=== PATIENT | male | born 1965 | race African-American/Black ===

== ENCOUNTER 2017-08-12 08:21 | Inpatient (IN) | payer OTHER ==
--- NOTE | 2017-08-02 16:37 | HP ---
HISTORY AND PHYSICAL: DATE OF ADMISSION/SURGERY: 08/12/17 DATE OF OFFICE VISIT: 07/31/17 SURGEON: Charity Dugan MD * (DICTATED BY CARLOS NGUYEN) PROCEDURE: Right total hip arthroplasty. CHIEF COMPLAINT: Right hip pain. HISTORY OF PRESENT ILLNESS: Mr. Galvan is a 52-year-old gentleman with complaints of right hip pain secondary to end-stage osteoarthritis. He failed conservative management and has elected to proceed with a right total hip arthroplasty, which is scheduled for 08/12/17. PAST MEDICAL HISTORY: Denies. PAST SURGICAL HISTORY: Left knee arthroscopy x2, left total knee arthroplasty, right shoulder scope, right knee arthroscopy, and tonsillectomy. CURRENT MEDICATIONS: Percocet. ALLERGIES: None. FAMILY HISTORY: Hypertension, heart disease, asthma. SOCIAL HISTORY: He is a 52-year-old gentleman. Lives alone. He does not smoke or use drugs. He uses occasional alcohol. REVIEW OF SYSTEMS: A complete 14-point review of systems was reviewed with the patient, was all negative or noncontributory. PHYSICAL EXAMINATION GENERAL: He is well developed, well nourished, in no acute distress. VITAL SIGNS: He stands 5 feet 3 inches tall and weighs 250 pounds. His blood pressure is 130/89. His heart rate is 101. HEENT: Normocephalic, atraumatic. NECK: Supple. No palpable lymph nodes. PULMONARY: Lungs are clear to auscultation bilaterally. CARDIO: Regular rate and rhythm. Strong S1, S2. ABDOMEN: Soft, nontender, nondistended. NEUROLOGICAL: Alert and oriented x3. Cranial nerves II through XII are intact. MUSCULOSKELETAL: Right lower extremity, skin is intact. There are no open wounds or abrasions. He has decreased internal and external rotation of the right hip. He walks with a slightly antalgic-type gait. 2+ dorsalis pedis pulses and intact sensation. ASSESSMENT AND PLAN: Mr. Galvan is a 52-year-old gentleman with right hip pain secondary to advanced osteoarthritis. He has failed conservative management and elected to proceed with a right total hip arthroplasty, which is scheduled for 08/12/[address] Dugan discussed the risks and benefits of the surgery and all of his questions were answered. He will follow up with Dr. Dugan 2 weeks after the surgery. Percocet, Colace, and aspirin were sent to his pharmacy for postoperative pain control and DVT prophylaxis. CARLOS NGUYEN [id number]/[facility] #: [id number] MTDDerrek
[~2017-08-12 08:21] MED LIST: Buffered Lidocaine 0.9% SYRIN* 5 ML/SYR SYRINGE INTRADERM ONE; Famotidine IV* 10 MG/ML 2 ML (20 mg) IV ONE; Metoclopramide TAB* 10 MG PO ONE
[2017-08-12] MEDS ORDERED: Metoclopramide TAB* 10 MG ONE (08:31)
[2017-08-12] MEDS ORDERED: ceFAZolin 2 GM PREMIX (*) 50 ML IVPB ONE (08:31)
[2017-08-12] MEDS ORDERED: Famotidine IV* 10 MG/ML 2 ML (20 mg) ONE (08:31)
[2017-08-12] MEDS ORDERED: Propofol* 10 MG/ML 20 ML BTL IV PUSH ONE (09:02)
[2017-08-12] MEDS ORDERED: KETAMINE HCL* 50 MG/ML 10 ML VIAL ONE (09:02)
[2017-08-12] MEDS ORDERED: Dexamethasone IV* 4 MG/ML 1 ML (4 MG) ONE (09:02)
[2017-08-12] MEDS ORDERED: Ketorolac INJ* 30 MG/ML 1 ML VIAL ONE (09:02)
[2017-08-12] MEDS ORDERED: Midazolam* 1 MG/ML 5 ML VIAL (5 MG) ONE (09:02)
[2017-08-12] MEDS ORDERED: Lidocaine 2% PF * 5 ML VIAL ONE (09:02)
[2017-08-12] MEDS ORDERED: fentaNYL* 50 MCG/ML 2 ML VIAL (100 MCG VIAL) ONE ×2 (09:02→13:22)
[2017-08-12] MEDS ORDERED: Ondansetron INJ* 2 MG/ML VIAL ONE (09:02)
[2017-08-12] MEDS ORDERED: Bupivacaine 0.5% SDV PF* 30 ML VIAL ONE ×2 (09:02→12:28)
[2017-08-12] MEDS ORDERED: Morphine PF AMP (0.5MG/ML)* 5 MG/10 ML AMP ONE (09:03)
[2017-08-12] MEDS ORDERED: fentaNYL* 50 MCG/ML 5 ML VIAL (250 MCG VIAL) ONE (10:34)
[2017-08-12] MEDS ORDERED: Cisatracurium* 2 MG/ML MDV 5 ML ONE (10:35)
[2017-08-12] MEDS ORDERED: DiMENhydriNATE IV* 50 MG/ML VIAL IV PUSH PRN (11:19)
[2017-08-12] MEDS ORDERED: Ondansetron INJ* 2 MG/ML VIAL IV PRN (11:19)
[2017-08-12] MEDS ORDERED: HYDROmorphone INJ* 1 MG/ML CARPUJECT SYRINGE ONE ×2 (12:39→13:47)
[2017-08-12] MEDS ORDERED: Labetalol IV* 5 MG/ML 20 ML VIAL ONE (12:47)
[2017-08-12] MEDS ORDERED: Ondansetron TAB* 4 MG PO PRN (13:07)
[2017-08-12] MEDS ORDERED: Bisacodyl SUPP* 10 MG SUPP PR PRN (13:07)
[2017-08-12] MEDS ORDERED: Morphine INJ* 2 MG/ML 1 ML CARPUJECT IV PRN (13:07)
[2017-08-12] MEDS ORDERED: oxyCODONE/Acetamin 5/325 MG* TAB PO PRN (13:07)
[2017-08-12] MEDS ORDERED: oxyCODONE TAB* 5 MG TAB PO PRN (13:07)
[2017-08-12] MEDS ORDERED: Polyethylene Glycol 3350* 17 GM PACKET PO PRN (13:07)
[2017-08-12] MEDS ORDERED: Acetaminophen TAB* 325 MG PO PRN (13:07)
[2017-08-12] MEDS ORDERED: diPHENhydraMINE IV* 50 MG/ML 1 ml VIAL (BENADRYL) IV PRN (13:07)
--- NOTE | 2017-08-12 13:17 | RAD ---
INDICATION: Right total hip replacement surgery. COMPARISON: Comparison is made with a prior x-ray study of the right hip from June 28, 2017. TECHNIQUE: A single AP view of the pelvis was obtained portably in the operating room. FINDINGS: The patient is undergoing a total right hip replacement surgery. The acetabular prostheses is in place. There is a femoral prostheses template in place. There is a surgical soft tissue defect present laterally. IMPRESSION: INTRAOPERATIVE CONTROL FILMS. CPT II Codes: 6045F
[2017-08-12] MEDS: fentaNYL* 50 MCG/ML 2 ML VIAL (100 MCG VIAL) IV PRN ×2 (13:24→13:44)
[2017-08-12] MEDS: HYDROmorphone INJ* 1 MG/ML CARPUJECT SYRINGE IV PRN ×2 (13:48→14:32)
--- NOTE | 2017-08-12 14:08 | RAD ---
Indication: Right total hip replacement. 2 views of the right hip and an AP view the pelvis demonstrates bipolar right-sided hip arthroplasty in satisfactory position. Pelvic ring is intact. Left hip joint is unremarkable. IMPRESSION: Right hip replacement in satisfactory position.
[2017-08-12] MEDS ORDERED: oxyCODONE/Acetamin 5/325 MG* TAB ONE (14:31)
[2017-08-12] MEDS: oxyCODONE/Acetamin 5/325 MG* TAB PO PRN ×2 (14:32→21:58)
[2017-08-12] MEDS ORDERED: Tobramycin/Dexameth OPTH.SUSP* 2.5 M L BTL RIGHT EYE SCH (15:30)
[2017-08-12] MEDS: Tobramycin 0.3% OPHTH.OINT* 3.5 GM TUBE (OPTH OINTMENT) RIGHT EYE SCH ×3 (15:53→21:59)
[2017-08-12] MEDS ORDERED: Warfarin TAB(*) 6 MG PO ONE (17:00)
[2017-08-12] MEDS: ceFAZolin 1 GM VIAL(*) 1 GM in NS 0.9% 50 ML* 50 ML IVPB SCH (19:53)
[2017-08-12] MEDS: Docusate CAP* 100 MG PO SCH (19:56)
[2017-08-13] MEDS: ceFAZolin 1 GM VIAL(*) 1 GM in NS 0.9% 50 ML* 50 ML IVPB SCH ×2 (03:34→12:28)
[2017-08-13 06:34] LABS: Hematocrit 35 % (42-52)
[2017-08-13 06:53] LABS: BUN/Creatinine Ratio 14.2 (8-20); Calcium 8.2 mg/dL (8.6-10.3); EGFR African American 94.4 (>60); EGFR Non-African American 73.4 (>60); Potassium 3.9 mmol/L (3.5-5.0)
[2017-08-13] MEDS: oxyCODONE/Acetamin 5/325 MG* TAB PO PRN ×2 (07:57→12:27)
[2017-08-13] MEDS: Docusate CAP* 100 MG PO SCH ×2 (07:58→20:49)
[2017-08-13] MEDS: Tobramycin 0.3% OPHTH.OINT* 3.5 GM TUBE (OPTH OINTMENT) RIGHT EYE SCH ×4 (07:58→20:49)
--- NOTE | 2017-08-13 08:06 | PN ---
Progress Note - Progress Note Date of Service: 08/13/17 SOAP: Subjective: patient resting comfortably with no complaints, pain well controlled Objective: Vital Signs Temp Pulse Resp BP Pulse Ox 99.1 F 84 16 124/73 100 08/13/17 07:46 08/13/17 07:46 08/13/17 07:57 08/13/17 07:46 08/13/17 07:46 Laboratory Last Values Hgb 12.0 g/dl (14.0-18.0) L 08/13/17 06:16 Hct 35 % (42-52) L 08/13/17 06:16 INR (Anticoag Therapy) 1.02 (0.89-1.11) 08/13/17 06:17 Sodium 137 mmol/L (133-145) 08/13/17 06:16 Potassium 3.9 mmol/L (3.5-5.0) 08/13/17 06:16 Chloride 106 mmol/L (101-111) 08/13/17 06:16 Carbon Dioxide 25 mmol/L (22-32) 08/13/17 06:16 Anion Gap 6 mmol/L (2-11) 08/13/17 06:16 BUN 15 mg/dL (6-24) 08/13/17 06:16 Creatinine 1.06 mg/dL (0.67-1.17) 08/13/17 06:16 Est GFR ( Amer) 94.4 (>60) 08/13/17 06:16 Est GFR (Non-Af Amer) 73.4 (>60) 08/13/17 06:16 BUN/Creatinine Ratio 14.2 (8-20) 08/13/17 06:16 Glucose 117 mg/dL (70-100) H 08/13/17 06:16 Calcium 8.2 mg/dL (8.6-10.3) L 08/13/17 06:16 incision:c/d PE: NVI Assessment: s/p right MAZIN Plan: 1) PT/OT- WBAT 2) Lovenox for DVT prophylaxis; will go home on ASA 325 BID 3) Abx for 24 hours post-op
[2017-08-13] MEDS: Enoxaparin(*) 30 MG/0.3 ML SYR SUBCUT SCH (12:27)
--- NOTE | 2017-08-13 15:13 | OP ---
OPERATIVE REPORT: DATE OF OPERATION: 08/12/17 - Inpatient, [facility] room 342-02. DATE OF : 65 SURGEON: Charity Dugan MD. CREMATOR: CARLOS Leyva. Ms. Vasquez did help throughout the procedure with preparation of the leg, wound retraction, manipulation of the hip, and wound closure. ANESTHESIOLOGIST: Dr. Zavala. ANESTHESIA: General. PRE-OP DIAGNOSIS: Severe endstage degenerative osteoarthritis of the right hip joint. POST-OP DIAGNOSIS: Severe end-stage degenerative osteoarthritis of the right hip joint. OPERATIVE PROCEDURE: Right total hip arthroplasty. HARDWARE USED: This is an uncemented [place] total hip hardware. For the cup, a Tritanium cluster hole shell 54E with a single 25-mm cancellous bone screw. A polyethylene insert was Trident X3 0-degree 36E. For the stem, an Accolate TMZF size 3.5 with 127-degree neck. For the head, a Biolox delta ceramic C40 femoral head 36 +0. ESTIMATED BLOOD LOSS: 300 mL. COMPLICATIONS: None. SPECIMENS: Femoral head and acetabular reaming sent to pathology. BRIEF HISTORY/INDICATION: Mr. Galvan is a 52-year-old gentleman with approximately 1 year of severe right hip pain. Radiographs showed severe endstage arthritis with [id number]-[id number] contact. He failed conservative treatment with antiinflammatory, physical therapy, pain medication, and intraarticular injection. Due to continued pain and decreased quality of life, he elected to undergo right total hip arthroplasty. Informed consent was obtained from the patient. He understood the risks of the procedure, included but were not limited to bleeding, infection, damage to nearby structures, continued pain, need for further surgery, intraoperative fracture, nerve palsy, hardware failure or loosening, dislocation, leg length discrepancy, stroke, heart attack , blood clot, and . He wished to proceed. INTRAOPERATIVE FINDINGS: Intraoperatively, the patient was noted to have severe endstage arthritis significant osteophyte formation. He had complete loss of cartilage along the femoral head and acetabulum. DESCRIPTION OF PROCEDURE: Mr. Galvan was identified in the preanesthesia unit. Her right lower extremity was marked as the correct operative side. Informed consent was signed and placed in the chart. The patient was taken to the operating room and placed under general anesthesia. A Eubanks catheter was placed. He was placed in the left lateral decubitus position on the PEG board. All bony prominences were very well padded. Right lower extremity was prepped and draped in the usual sterile fashion. Preop time-out was made to correctly identity the patient's side and site. Appropriate perioperative antibiotics were given within 1 hour of incision. A 14-cm posterior hip incision was made with a 10 blade and carried down to the lateral fascial layer. Lateral fascial layer was then incised in line with the skin incision. A Charnley retractor was placed. The piriformis and conjoint tendons were identified. There were elevated off the posterolateral femur using electrocautery. These were tagged with #5 Ethibonds. Next, electrocautery was used to make a standard posterolateral capsular flap and this was also tagged with #5 Ethibonds. The hip was carefully dislocated. The femoral head measured 55 mm. Oscillating saw was used to make the appropriate femoral neck cut. The femur was carefully retracted anteriorly. After appropriate placement of retractors, the acetabulum was easily visualized. Long-handled knife was used to remove any remaining labrum from the acetabular rim. The acetabulum was sequentially reamed to a size 53. A good bleeding subchondral bone bed was obtained. A 53 trial had excellent fit as well as appropriate anteversion and abduction angle. Final implant chosen was a Tritanium hemispherical cluster hole shell 54E. This was impacted into the acetabulum without difficulty. The acetabular cup was stable with appropriate anteversion and abduction angle. A single 25-mm screw was placed in the superior posterior quadrant for added stability. Trident X3 0 degree polyethylene liner was chosen 36E. This was impacted into the acetabulum without difficulty. Stability of the liner was checked and rechecked and noted to be stable. Attention was turned next to preparation of the femur. Canal finger and box cut osteotome were used to enter the proximal femoral canal. The femoral canal was sequentially broached up to a size 3.5. A 3.5 broach had good fit as well as appropriate anteversion. A 127-degree neck trial was placed as well as a 36 +0 femoral head trial was chosen. Lesser troch to the center of the femoral head measured 54 mm. The hip was reduced and taken through a range of motion. The hip was stable in all positions. There was good soft tissue tension and appropriate leg lengths. All trials were carefully removed. Final implant chosen was an Accolade TMZF size 3.5 with a 127-degree neck. This was impacted into the femoral canal without difficulty. A 36 +0 Biolox delta ceramic C40 femoral head was chosen. This was impacted on to the femoral neck. Lesser troch to center of the femoral head measured 54 mm. The hip was reduced and taken through a range of motion. The hip was stable in all positions. There was good soft tissue tension and appropriate leg lengths. The hip was copiously irrigated with sterile saline. Previously tagged tendons and capsule were reapproximated to the posterolateral femur through 2 trochanteric drill holes. Lateral fascia layer was closed using interrupted #1 Vicryl. The rest of the incision was closed in a layered fashion using 0, 2-0 Vicryls. Skin was closed using running 3-0 Monocryl and Dermabond. Sterile Adaptic, 4x4s, and paper tape were used to cover the incision. The patient's anesthesia was carefully reversed without difficulty. He was taken to the PACU in stable condition. Intended weightbearing will be weightbearing as tolerated. Intended DVT prophylaxis will be Coumadin with a Lovenox bridge. [id number]/[facility] #: [id number] JACQUELYN
[2017-08-14] MEDS: Magnesium Hydroxide LIQ* 30 ML UDC PO PRN ×2 (03:28→08:44)
[2017-08-14 05:53] LABS: Hematocrit 34 % (42-52)
[2017-08-14] MEDS: Docusate CAP* 100 MG PO SCH (08:44)
[2017-08-14] MEDS: Tobramycin 0.3% OPHTH.OINT* 3.5 GM TUBE (OPTH OINTMENT) RIGHT EYE SCH ×2 (08:45→12:47)
--- NOTE | 2017-08-14 10:56 | PN ---
Progress Note - Progress Note Date of Service: 08/14/17 SOAP: Subjective: []Patient seen at bedside, ready to work with PT. Had a BM this am and is ready to go home this afternoon. Denies SOB, CP or dizziness. Objective: [] Vital Signs Temp 98.0 F 08/14/17 07:20 Pulse 99 08/14/17 07:20 Resp 18 08/14/17 08:00 BP 115/54 08/14/17 07:20 Pulse Ox 98 08/14/17 07:20 Intake & Output 08/13/17 08/14/17 08/14/17 18:59 06:59 18:59 Intake Total 760 1100 350 Output Total 1175 300 Balance 760 -75 50 Intake: Oral 760 1100 350 Output: Urine 1175 300 Other: Estimated Void Medium # Bowel Movements 0 Laboratory Results - last 24 hr 08/14/17 08/14/17 05:36 05:36 Hgb 12.0 L Hct 34 L INR (Anticoag Therapy) 1.05 Right hip incision benign, dressing changed by Dr. Dugan this am calf NT and soft +DF/PF right ankle sensation intact distally Assessment: []s/p Right total hip arthroplasty POD #2 Plan: []PT this am ASA 325 mg BID Home this afternoon Follow up as scheduled with Dr. Dugan
[2017-08-14 11:48] VITALS: BP 130/78
[2017-08-14] MEDS: Enoxaparin(*) 30 MG/0.3 ML SYR SUBCUT SCH (12:46)
--- NOTE | 2017-08-15 02:37 | DS ---
DISCHARGE SUMMARY: DATE OF ADMISSION: 08/12/17 DATE OF DISCHARGE: 08/14/17 ATTENDING PHYSICIAN: Dr. Charity Dugan. ADMISSION DIAGNOSIS: Severe end-stage degenerative osteoarthritis of the right hip. DISCHARGE DIAGNOSIS: Severe end-stage degenerative osteoarthritis of the right hip. SURGERY PERFORMED: Right total hip arthroplasty. HOSPITAL COURSE: The patient is a 52-year-old male with roughly 1 year of severe right hip pain. H is x-rays revealed severe end-stage osteoarthritis with bone on bone contact. The patient failed co nservative management with antiinflammatories, physical therapy, pain medications, and intraarticula r cortisone injections. Due to his continued pain and disability, he elected to proceed with right total hip arthroplasty. He was taken to the operating room under the care of Dr. Charity Dugan on e date of 08/12/17 for the aforementioned procedure. He tolerated the procedure well and left the o perating room in stable condition. Postoperatively, he did well with his physical therapy and occupational therapy exercises. He had n o postoperative complications and it was felt he was medically and orthopedically stable for dischar ge to home on the date of 08/14/17. CONDITION ON DISCHARGE: The patient is afebrile with a temperature of 97.8, his pulse is 108, respi ratory rate 18, O2 sats 96% on room air, and blood pressure 130/78. His hip incision is healing wit hout evidence of infection. He has full dorsiflexion and plantar flexion of his right ankle. His c mcc is nontender and soft. His circulation and sensation are intact distally. PLAN: The patient will be discharged to home. He may bear weight as tolerated on the right lower e xtremity. He was not therapeutic on his Coumadin; therefore, we will discontinue the Coumadin and h e will be transitioned to aspirin 325 mg p.o. b.i.d. The patient is in understanding of this change in his postoperative anticoagulation plan. He will continue with his PT exercise program as an out patient and will follow up as scheduled with Dr. Dugan in the office. If there is any change in his condition orthopedically or medically, the office will be contacted prior to his scheduled appointm ent. CARLOS SARGENT [id number]/[facility] [place] #: [id number]
== END 2017-08-14 13:15 | disposition home health service (06) | DRG 301 ==
LOC: AA 08:21 → SSU 16:17
PROVIDERS: ADMIT Orthopaedic Surgery Adult Reconstructive Orthopaedic Surgery; ATTEND Orthopaedic Surgery Adult Reconstructive Orthopaedic Surgery
PROC: 0SR904A Replacement of Right Hip Joint with Ceramic on Polyethylene Synthetic Substitute, Uncemented, Open Approach (ICD-10-PCS; principal; 2017-08-12 10:00)
DX: M16.11 Unilateral primary osteoarthritis, right hip (principal); M25.751 Osteophyte, right hip; Z79.82 Long term (current) use of aspirin; Z96.651 Presence of right artificial knee joint; Z82.49 Family history of ischemic heart disease and other diseases of the circulatory system; Z82.5 Family history of asthma and other chronic lower respiratory diseases
CPT/HCPCS: 36415; 80048; 85014; 85018; 85610; A9270-GY; C1713; C1776; J0690; J1100; J1170; J1650; J1885; J2250; J2405; J2704; J3010

== ENCOUNTER 2018-01-29 14:07 | Emergency (ER) | payer OTHER ==
[2018-01-29 16:22] LABS: Hematocrit 45 % (42-52); Hemoglobin 15.3 g/dl (14.0-18.0); Mean Corpuscular HGB Conc 34 g/dl (31-36); Mean Corpuscular Hemoglobin 28 pg (27-31); Mean Corpuscular Volume 83 fL (80-94); Mean Platelet Volume 9 um3 (7.4-10.4); Platelet Count 213 10^3/ul (150-450); Red Blood Count 5.44 10^6/ul (4.0-5.4); Red Cell Distribution Width 15 % (10.5-15)
--- NOTE | 2018-01-29 16:28 | RAD ---
INDICATION: Hemoptysis COMPARISON: Chest x-ray September 26, 2017 TECHNIQUE: An AP portable view obtained at 1611 hours is submitted. FINDINGS: Bones/Soft Tissues: There are no acute bony findings. Cardiomediastinal: The cardiomediastinal silhouette is normal. Lungs: There are no infiltrates. Pleura: There are no pleural effusions. Other: None IMPRESSION: NO ACTIVE DISEASE.
[2018-01-29 16:30] LABS: INR 0.93 (0.77-1.02)
[2018-01-29 16:42] LABS: EGFR Non-African American 73.4 (>60)
[2018-01-29 16:58] LABS: ABS Basophils 0 10^3/ul (0-0.2); ABS Eosinophils 0 10^3/ul (0-0.6); ABS Lymphocytes 0.6 10^3/ul (1.0-4.8); ABS Monocytes 0.6 10^3/ul (0-0.8); ABS Neutrophils 5.7 10^3/ul (1.5-7.7); ABS Nucleated RBC 0 10^3/ul; Eosinophil % 0.6 % (0-6); Lymphocyte % 9.2 % (25-47); Nucleated Red Blood Cells % 0.1
[2018-01-29 17:10] VITALS: BP 119/89
--- NOTE | 2018-01-29 23:13 | ED ---
Nova Barron Gabriel, scribed for Chandrakant Glover MD on 01/29/18 at 1558 . Complex/Multi-Sys Presentation - HPI Summary HPI Summary: This patient is a 52 year old M [facility] accompanied by his partner with a chief complaint of bloody phlegm that began 6 weeks ago. Pt states this occurs when he wakes up; he had similar symptoms for 6 months that resolved. The patient rates the pain 7/10 in severity.Patient reports diarrhea and epigastric ABD pain. Patient denies blood in his stool, sinus pressure, cough, and chest congestion.Pt is getting an endoscopy and colonoscopy in a week. Hx GERD. - History Of Current Complaint Chief Complaint: EDGeneral Time Seen by Provider: 01/29/18 15:48 Hx Obtained From: Patient Onset/Duration: Lasting Weeks - 6, Still Present Timing: Constant Severity Currently: Mild Severity Initially: Mild Associated Signs And Symptoms: Positive: Other - diarrhea, bloody phlem, and epigastric ABD pain - Allergies/Home Medications Allergies/Adverse Reactions: Allergies Allergy/AdvReac Type Severity Reaction Status Date / Time No Known Allergies Allergy Verified 01/29/18 14:11 PMH/Surg Hx/FS Hx/Imm Hx Endocrine/Hematology History: Denies: Hx Anticoagulant Therapy, Hx Blood Disorders, Hx Diabetes Cardiovascular History: Denies: Hx Congestive Heart Failure, Hx Hypertension, Hx Pacemaker/ICD Respiratory History: Denies: Hx Asthma, Hx Chronic Obstructive Pulmonary Disease (COPD) GI History: Reports: Hx Gastroesophageal Reflux Disease History: Denies: Hx Renal Disease Musculoskeletal History: Reports: Hx Arthritis - KNEES, HIPS, Other Musculoskeletal History - HX OF INJURIES TO SHOULDERS, CHRONIC PAIN IN KNEES, HIPS Sensory History: Reports: Hx Contacts or Glasses - GLASSES Denies: Hx Hearing Aid Opthamlomology History: Reports: Hx Contacts or Glasses - GLASSES Psychiatric History: Denies: Hx Panic Disorder, Other Psychiatric Issues/Disorders - Cancer History Hx Chemotherapy: No - Surgical History Surgery Procedure, Year, and Place: RIGHT SHOULDER REPAIR- 12 YRS AGO- [facility]. [facility] LEFT KNEE ARTHROSCOPY- [facility]. ORIF LEFT KNEE- [facility]. LEFT KNEE HARDWARE REMOVAL- [facility]. LEFT TOTAL KNEE REPLACEMENT- [facility] Hx Anesthesia Reactions: No Infectious Disease History: No Infectious Disease History: Denies: Hx Clostridium Difficile, Hx Hepatitis, Hx Human Immunodeficiency Virus (HIV), Hx of Known/Suspected MRSA, Hx Shingles, Hx Tuberculosis, History Other Infectious Disease, Traveled Outside the [place] in Last 30 Days - Family History Known Family History: Positive: Hypertension - Social History Alcohol Use: Occasionally Hx Substance Use: No Substance Use Type: Reports: None Hx Tobacco Use: No Smoking Status (MU): Never Smoked Tobacco Have You Smoked in the Last Year: No Review of Systems ENT: Negative - sinus pressure , Other - bloody phlem Respiratory: Negative - cough congestion Negative: Cough Gastrointestinal: Negative - blood in his stool Positive: Abdominal Pain, Diarrhea All Other Systems Reviewed And Are Negative: Yes Physical Exam - Summary Physical Exam Summary: General: well-appearing, no pain distress Skin: warm, color reflects adequate perfusion, dry Head: normal Eyes: EOMI, NELSON ENT: normal Neck: supple, nontender Respiratory: CTA, breath sounds present Cardiovascular: RRR Abdomen: soft, mildly TTP in the epigastrium Bowel: present Musculoskeletal: normal, strength/ROM intact Neurological: normal, sensory/motor intact, A&O x3 Psychological: affect/mood appropriate Triage Information Reviewed: Yes Vital Signs On Initial Exam: Initial Vitals Temp Pulse Resp BP Pulse Ox 98.5 F 117 18 129/102 99 01/29/18 14:08 01/29/18 14:08 01/29/18 14:08 01/29/18 14:08 01/29/18 14:08 Vital Signs Reviewed: Yes Diagnostics - Vital Signs Vital Signs Temp Pulse Resp BP Pulse Ox 01/29/18 15:45 99 F 101 14 125/93 100 01/29/18 14:08 98.5 F 117 18 129/102 99 - Laboratory Lab Results: Lab Results 01/29/18 01/29/18 01/29/18 Range/Units 16:08 16:08 16:08 WBC 7.0 (3.5-10.8) 10^3/ul RBC 5.44 H (4.0-5.4) 10^6/ul Hgb 15.3 (14.0-18.0) g/dl Hct 45 (42-52) % MCV 83 (80-94) fL MCH 28 (27-31) pg MCHC 34 (31-36) g/dl RDW 15 (10.5-15) % Plt Count 213 (150-450) 10^3/ul MPV 9 (7.4-10.4) um3 Neut % (Auto) 81.7 (38-83) % Lymph % (Auto) 9.2 L (25-47) % [place] % (Auto) 8.1 H (0-7) % Eos % (Auto) 0.6 (0-6) % Baso % (Auto) 0.4 (0-2) % Absolute Neuts (auto) 5.7 (1.5-7.7) 10^3/ul Absolute Lymphs (auto) 0.6 L (1.0-4.8) 10^3/ul Absolute Monos (auto) 0.6 (0-0.8) 10^3/ul Absolute Eos (auto) 0 (0-0.6) 10^3/ul Absolute Basos (auto) 0 (0-0.2) 10^3/ul Absolute Nucleated RBC 0 10^3/ul Nucleated RBC % 0.1 Large Platelets Present INR (Anticoag Therapy) 0.93 (0.77-1.02) APTT 30.3 (26.0-36.3) seconds Sodium 136 (133-145) mmol/L Potassium 4.1 (3.5-5.0) mmol/L Chloride 103 (101-111) mmol/L Carbon Dioxide 27 (22-32) mmol/L Anion Gap 6 (2-11) mmol/L BUN 17 (6-24) mg/dL Creatinine 1.06 (0.67-1.17) mg/dL Est GFR ( Amer) 94.4 (>60) Est GFR (Non-Af Amer) 73.4 (>60) BUN/Creatinine Ratio 16.0 (8-20) Glucose 88 (70-100) mg/dL Calcium 9.5 (8.6-10.3) mg/dL Total Bilirubin 1.20 H (0.2-1.0) mg/dL AST 16 (13-39) U/L ALT 15 (7-52) U/L Alkaline Phosphatase 44 (34-104) U/L Total Protein 7.4 (6.4-8.9) g/dL Albumin 4.2 (3.2-5.2) g/dL Globulin 3.2 (2-4) g/dL Albumin/Globulin Ratio 1.3 (1-3) Lipase 17 (11.0-82.0) U/L Result Diagrams: 01/29/18 16:08 01/29/18 16:08 Lab Statement: Any lab studies that have been ordered have been reviewed, and results considered in the medical decision making process. - Radiology CXR Xray Interpretation: No Acute Changes Radiology Interpretation Completed By: Radiologist - ED PHYSICIAN REVIEWS AND AGREES Re-Evaluation - Re-Evaluation 1 Re-Evaluation Time: 17:05 Comment: Discuss test results, dispo Complex Multi-Symp Course/Dx Course Of Treatment: PATIENT DENIES SINUS DRAINAGE. THE BLOOD APPEARS WITH COUGHING. HE HAS GI F/U PLANNED TO INCLUDE AN EGD IN THE NEAR FUTURE. I DISCUSSED GETTING A CHEST CTA WITH THE PATIENT AND HIS TO FURTHER EVALUATE THE HEMOPTYSIS; HE DECLINED. F/U WITH PMD AND GI; RETURN IF WORSE. - Diagnoses Provider Diagnoses: Hemoptysis, Abdominal pain Discharge - Discharge Plan Condition: Stable Disposition: HOME Patient Education Materials: Hemoptysis (ED), Abdominal Pain (ED) Referrals: John Paul Sellers MD [Primary Care Provider] - Additional Instructions: FOLLOW UP WITH YOUR PRIMARY CARE DOCTOR AND COMPARATIVE SOCIOLOGY PROFESSOR. RETURN TO THE EMERGENCY DEPARTMENT FOR ANY WORSENING OF YOUR CONDITION OR QUESTIONS OR CONCERNS. YOUR BLOOD PRESSURE WAS ELEVATED TODAY; FOLLOW UP WITH YOUR PRIMARY CARE DOCTOR WITHIN ONE WEEK. The documentation as recorded by the Nova levine Gabriel accurately reflects the service I personally performed and the decisions made by me, Chandrakant Glover MD.
== END 2018-01-29 17:09 | disposition home or self-care (01) ==
LOC: ED 14:07
DX: R04.2 Hemoptysis (principal); R10.13 Epigastric pain; R19.7 Diarrhea, unspecified
CPT/HCPCS: 36415; 71045; 80053; 83690; 85025; 85610; 85730; 99282

== ENCOUNTER 2018-03-22 18:08 | Emergency (ER) | payer OTHER ==
[2018-03-22 18:12] VITALS: BP 140/99
== END 2018-03-22 19:11 | disposition left against medical advice (07) ==
LOC: ED 18:08
DX: M54.9 Dorsalgia, unspecified (principal)

== ENCOUNTER 2018-03-30 14:31 | Emergency (ER) | payer OTHER ==
--- NOTE | 2018-03-30 15:56 | RAD ---
Indication: Left Fifth digit and metacarpal pain. 4 views of the left hand demonstrates no fracture. No other bone or joint abnormality is identified. IMPRESSION: No fracture of the left hand is noted.
[2018-03-30 16:33] VITALS: BP 129/89
--- NOTE | 2018-03-30 18:07 | ED ---
Upper Extremity Pain - HPI Summary HPI Summary: Patient is a 52-year-old male who presents emergency department for left hand injury that occurred 2-3 days ago. Patient states he was playing sports and thinks he injured his left hand. He states he has noticed bruising and swelling to his hand and presents for evaluation. Symptoms are mild in severity. Using and moving hand makes symptoms worse. Rest makes symptoms better. - History of Current Complaint Chief Complaint: EDExtremityUpper Stated Complaint: NUMBNESS & PAIN IN LT UPPER EXTREMITY Time Seen by Provider: 03/30/18 14:55 Hx Obtained From: Patient - Allergies/Home Medications Allergies/Adverse Reactions: Allergies Allergy/AdvReac Type Severity Reaction Status Date / Time No Known Allergies Allergy Verified 03/30/18 14:44 Home Medications: Home Medications Omeprazole CAP* [Prilosec CAP* 20 MG] 20 mg PO DAILY 03/30/18 [History Confirmed 03/30/18] traMADol TAB* [Ultram*] 50 mg PO DAILY PRN 03/30/18 [History Confirmed 03/30/18] PMH/Surg Hx/FS Hx/Imm Hx Previously Healthy: Yes Endocrine/Hematology History: Denies: Hx Anticoagulant Therapy, Hx Blood Disorders, Hx Diabetes Cardiovascular History: Denies: Hx Congestive Heart Failure, Hx Hypertension, Hx Pacemaker/ICD Respiratory History: Denies: Hx Asthma, Hx Chronic Obstructive Pulmonary Disease (COPD) GI History: Reports: Hx Gastroesophageal Reflux Disease History: Denies: Hx Renal Disease Musculoskeletal History: Reports: Hx Arthritis - KNEES, HIPS, Other Musculoskeletal History - HX OF INJURIES TO SHOULDERS, CHRONIC PAIN IN KNEES, HIPS Sensory History: Reports: Hx Contacts or Glasses - GLASSES Denies: Hx Hearing Aid Opthamlomology History: Reports: Hx Contacts or Glasses - GLASSES Psychiatric History: Denies: Hx Panic Disorder, Other Psychiatric Issues/Disorders - Cancer History Hx Chemotherapy: No - Surgical History Surgery Procedure, Year, and Place: RIGHT SHOULDER REPAIR- 12 YRS AGO- [facility]. [facility] LEFT [facility]NEE AR[facility]ROSCOPY- [facility]. ORIF LEFT KNEE- [facility]. LEFT KNEE HARDWARE REMOVAL- [facility] [place]. LEFT TOTAL KNEE REPLACEMENT- [facility] [place] Hx Anesthesia Reactions: No Infectious Disease History: No Infectious Disease History: Denies: Hx Clostridium Difficile, Hx Hepatitis, Hx Human Immunodeficiency Virus (HIV), Hx of Known/Suspected MRSA, Hx Shingles, Hx Tuberculosis, History Other Infectious Disease, Traveled Outside the US in Last 30 Days - Family History Known Family History: Positive: Hypertension - Social History Occupation: Unemployed Lives: With Family Alcohol Use: Occasionally Hx Substance Use: No Substance Use Type: Reports: None Hx Tobacco Use: No Smoking Status (MU): Never Smoked Tobacco Have You Smoked in the Last Year: No Review of Systems Positive: Other - Left hand pain All Other Systems Reviewed And Are Negative: Yes Physical Exam Triage Information Reviewed: Yes Vital Signs On Initial Exam: Initial Vitals Temp Pulse Resp BP Pulse Ox 98 F 99 14 106/73 99 03/30/18 14:44 03/30/18 14:44 03/30/18 14:44 03/30/18 14:44 03/30/18 14:44 Vital Signs Reviewed: Yes Appearance: Positive: Well-Appearing - Patients sitting on bed in no acute distress. present. Skin: Positive: Warm, Dry Head/Face: Positive: Normal Head/Face Inspection Eyes: Positive: Normal, NELSON Neck: Positive: Supple Musculoskeletal: Positive: Other - Pain on palpation over the fifth metatarsal of left hand. Full range of motion of hand with pain. No wounds. No proximal wrist pain. Neurological: Positive: Normal, CN Intact II-III Psychiatric: Positive: Normal Diagnostics - Vital Signs Vital Signs Temp Pulse Resp BP Pulse Ox 03/30/18 16:31 98.2 F 83 16 129/89 98 03/30/18 14:44 98 F 99 14 106/73 99 - Laboratory Lab Statement: Any lab studies that have been ordered have been reviewed, and results considered in the medical decision making process. Course/Dx - Course Course Of Treatment: Patient presenting to the ER for evaluation of a hand injury. X-rays are negative for fracture dislocation, reading per radiology. Results discussed. Paul wrap placed for comfort. Advised anti-inflammatories, ice and elevation. Activity as tolerated. Will follow-up with PCP if pain continues. - Diagnoses Differential Diagnosis/HQI/PQRI: Positive: Arthritis, Bursitis, Contusion, Fracture (Closed), Strain, Sprain Provider Diagnoses: Hand sprain Discharge - Sign-Out/Discharge Documenting (check all that apply): Discharge/Admit/Transfer - Discharge Plan Condition: Good Disposition: HOME Patient Education Materials: Hand Sprain (ED) Referrals: John Paul Sellers MD [Primary Care Provider] - Additional Instructions: Follow up with PCP if symptoms continue Ice and elevate Tylenol or Motrin for pain as directed - Billing Disposition and Condition Condition: GOOD Disposition: HOME
== END 2018-03-30 16:31 | disposition home or self-care (01) ==
LOC: ED 14:31
DX: S63.92XA Sprain of unspecified part of left wrist and hand, initial encounter (principal); Y93.79 Activity, other specified sports and athletics; Y92.9 Unspecified place or not applicable
CPT/HCPCS: 99282

== ENCOUNTER 2018-10-15 11:30 | Day surgery (SDC) | payer OTHER ==
[~2018-10-15 11:30] MED LIST changes: -Famotidine IV* 10 MG/ML 2 ML (20 mg) IV ONE; -Metoclopramide TAB* 10 MG PO ONE
[2018-10-15] MEDS ORDERED: Midazolam* 1 MG/ML 2 ML VIAL (2 MG) ONE (12:19)
[2018-10-15] MEDS ORDERED: fentaNYL* 50 MCG/ML 2 ML VIAL (100 MCG VIAL) ONE (12:19)
[2018-10-15] MEDS ORDERED: ceFAZolin 2 GM PREMIX in ORs 2 GM/50 ML BAG IVPB ONE (12:33)
[2018-10-15] MEDS ORDERED: Buffered Lidocaine 0.9% SYRIN* 5 ML/SYR SYRINGE ONE (12:35)
[2018-10-15] MEDS ORDERED: EPINEPHRINE 1 MG/ML 1 ML VIAL ONE (13:36)
[2018-10-15] MEDS ORDERED: Lidocaine 2% PF * 5 ML VIAL ONE (14:06)
[2018-10-15] MEDS ORDERED: Succinylcholine* 20 MG/ML 10 ML VIAL ONE (14:06)
[2018-10-15] MEDS ORDERED: Ondansetron INJ* 2 MG/ML VIAL ONE (14:06)
[2018-10-15] MEDS ORDERED: Propofol* 10 MG/ML 20 ML BTL ONE (14:06)
[2018-10-15] MEDS ORDERED: Sevoflurane* 1 BTL ONE (14:06)
[2018-10-15] MEDS ORDERED: Dexamethasone IV* 4 MG/ML 1 ML (4 MG) ONE (14:06)
[2018-10-15] MEDS ORDERED: Bupivacaine 0.5% W/EPI SDV* 30 ML VIAL ONE (14:08)
[2018-10-15] MEDS ORDERED: Naloxone* 0.4 MG/ML 1 ML VIAL IV PRN (14:50)
[2018-10-15 18:59] VITALS: BP 126/87
--- NOTE | 2018-10-20 05:18 | OP ---
OPERATIVE NOTE: DATE OF OPERATION: 10/15/18 DATE OF : 65 SURGEON: Jonathon Jones MD FIRE INVESTIGATION MANAGER: CARLOS Srinivasan A physician registered dental assistant rda was required for the length of procedure for assistance with positioning, retraction, instrumentation, and closure. ANESTHESIOLOGIST: Dr. Cecile Hidalgo. ANESTHESIA: General anesthesia, regional interscalene block anesthesia. Local anesthesia, Marcaine 0.25% with epinephrine, 10 cc. PRE-OP DIAGNOSES: 1. Right shoulder rotator cuff tendon tear, small, full-thickness, supraspinatus, recurrent. 2. Possible right shoulder rotator cuff tendon tear subscapularis. 3. Right shoulder AC joint osteoarthritis. 4. Right shoulder subacromial impingement and bursitis. 5. Right shoulder long head proximal biceps tendon, medial subluxation. 6. History of right shoulder rotator cuff repair surgery with metal anchors, in an outside hospital in [place], [place], 10 to 20 years ago. POST-OP DIAGNOSES: 1. Right shoulder rotator cuff tendon tear, small, full-thickness, supraspinatus, recurrent. 2. Right shoulder AC joint osteoarthritis. 3. Right shoulder subacromial impingement and bursitis. 4. Right shoulder long head proximal biceps tendinosis and medial subluxation. 5. History of right shoulder rotator cuff repair surgery with metal anchors at an outside hospital in [place], [place], 10 to 20 years ago. 6. No right shoulder rotator cuff tendon tear of the subscapularis. OPERATIVE PROCEDURE: 1. Right shoulder arthroscopic rotator cuff tendon repair, revision, supraspinatus, using a [id number] technique of suturing. 2. Right shoulder arthroscopic subacromial decompression. 3. Right shoulder arthroscopic distal clavicle resection. 4. Right shoulder arthroscopic release of biceps tendon and evaluation of subscapularis. 5. Right shoulder open proximal biceps tenodesis, subpectoral. IV FLUIDS: 1200 cc crystalloid. ANTIBIOTICS: Ancef 2 g IV. [id number] TIME: 118 minutes. ARTHROSCOPIC FLUID UTILIZED: Information unavailable. SPECIMEN: None. IMPLANTS: FiberWire #2, sutures x2. Arthrex proximal biceps button x1. COMPLICATIONS: None. ESTIMATED BLOOD LOSS: Minimal. INDICATIONS FOR PROCEDURE: The patient is a 53-year-old man, right hand dominant, with a complicated musculoskeletal history in multiple joints, with a history of a right hip and left knee arthroplasty already at this relatively younger age, who has struggled with right shoulder pain since a fall, 11/01/16, almost 2 years ago. The patient's pain initially responded to nonoperative management but it recurred. I obtained an MRI early on several years ago and more recently obtained a CT arthrogram to evaluate the rotator cuff tendon as well as other intraarticular pathology. The patient had been treated with long courses of physical therapy, home exercises, NSAIDs, and subacromial cortisone injection. The patient very adamantly wanted a shoulder surgery for more a definitive treatment. CT arthrogram preoperatively showed a very discrete narrow full-thickness tear in the supraspinatus. It showed spurs about the acromion, subacromial impingement as well as AC joint osteoarthritis. It showed some medial subluxation of long head of the biceps tendon with some inflammation of the biceps tendon. Question of subscapularis pathology based on the subluxation medially of the biceps. Described risks and potential complications of surgery. DESCRIPTION OF PROCEDURE: In preoperative holding, the patient signed a written consent. Operative extremity was marked in preoperative holding. The patient underwent a regional interscalene nerve block by Dr. Hidalgo in preoperative holding. The patient was taken back to the operating room and placed supine on the operating room table. Sedated and intubated. The patient was then turned into the lateral decubitus position with the right shoulder up. Axillary roll. Bony prominences padded. Longitudinal traction with appropriate amount of forward flexion and abduction, 10 to 15 pounds. The right shoulder was prepped and draped. A surgical time-out was performed. 30 cc of normal saline was infused into the right shoulder glenohumeral joint from posterior. I then established a right shoulder glenohumeral joint portal using standard technique. I started my diagnostic arthroscopy. The long head of the biceps tendon was noted to be significantly thickened and widened quite extensively. There was no clear subscapularis tear. There was some injury, clear loss of articular cartilage on the humeral head, but not on the glenoid. I would rate that as a grade 2 lesion. Lateral to the rotator cuff cable, in the rotator cuff crescent, there was some clear fraying of the rotator cuff, supraspinatus. I established an anterior glenohumeral joint portal under direct visualization. I entered my shaver and debrided some rotator cuff interval tissue to improve visualization and range of motion. I released the biceps tendon near its origin with an arthroscopic scissors. I debrided some of the frayed tissue on the undersurface of the supraspinatus. I did not appreciate any significant area of rotator cuff footprint being uncovered. I was able to visualize some suture, clearly medial row anchor from his prior rotator cuff repair. Just medial to that anchor, it appeared as if there was a slit tear, longitudinal in the rotator cuff. I placed a spinal needle from outside the body through into that area to esvin it and then to evaluate it from superiorly. I exited the glenohumeral joint and then entered the subacromial space from anterior and posterior. I established a lateral subacromial portal under direct visualization. There was significant bursitis, subacromial, which I debrided with an arthroscopic shaver. I then visualized the location of my spinal needle that I had used for marking. I was able to visualize some suture and a little slit tear in the supraspinatus. As it had been appreciated on preoperative MRI, the remainder of the rotator cuff at the footprint seemed entirely intact. This was a small slit, in the direction of the fibers of the supraspinatus. I thought it would be best rather than taking down good rotator cuff tendon tissue to place an anchor, to repair the slit, with a [id number] repair. The geometry of the tear made this most appropriate. I viewed the rotator cuff a second time from both below and above. This confirmed the appropriateness of my strategy. I then performed a subacromial decompression with an arthroscopic amaya used from lateral. I flattened out the undersurface of the acromion nicely. I next used ideal suture passers from [place] to place 2 stitches using FiberWire #2 suture to do a [id number] repair. This was stable to probing and to movement passively on the shoulder. I then addressed the AC joint. I debrided with a vapor bursitic tissue about the AC joint. I next debrided at least 8-mm of the distal end of the clavicle with an arthroscopic amaya. I removed fluid and instruments from subacromial space. I then deflated the beanbag and placed the patient in a supine position. Anesthesia watched the head and neck as I turned the patient. I then made an essentially approximately a 4-cm longitudinal incision about the anteromedial proximal upper arm centered just distal to the inferior edge of the pectoralis and major tendon. Dissected down to the bicipital groove. I removed long head biceps tendon. This required some force as the biceps tendon was clearly adherent along a much of the bicipital groove. It should be noted that also arthroscopically, I noted that the biceps was very adherent to the undersurface of the supraspinatus. I had spent some time safely and carefully removing the long head of the biceps tendon off the undersurface of the supraspinatus while I went to that releasing it from near its origin towards the start of the case. I placed my Beath pin unicortically. I placed 4 stitches using FiberLoop suture. I loaded my Arthrex biceps button. Placed the button and flipped it. Tied knot. I then tied a second half of this after placing a new stitch with a free needle. I removed excess tendon and cut stitches. Irrigation. Closure of the subcutaneous tissue with buried simple stitches using Vicryl 3-0 suture. Closure of the subcuticular layer with running stitches and Monocryl 4-0 suture. The biceps incision then had some local anesthesia 10 cc of 0.25% Marcaine with epinephrine placed in the subcutaneous tissue about it. Mastisol. Steri-Strips. 4x4 and Tegaderm. The other incisions had placed Xeroform, 4x4s, ABDs, and foam tape. A sling was placed with an abduction pillow. The patient was awakened and extubated and brought to the PACU. DISPOSITION: The patient was discharged home when medically stable. The patient was to receive Keflex x5 days for infection prophylaxis given the biceps skin incision. Percocet as needed for pain control. The patient will follow up 10 to 14 days postoperatively. The patient will start physical therapy when appointment available. He will follow a routine rotator cuff postop protocol. [id number]/[facility] #: [id number] [facility] HOSPITALDerrek
== END 2018-10-15 19:01 | disposition home or self-care (01) ==
LOC: OR 11:30
PROVIDERS: ATTEND Orthopaedic Surgery
DX: S46.011A Strain of muscle(s) and tendon(s) of the rotator cuff of right shoulder, initial encounter (principal); M19.011 Primary osteoarthritis, right shoulder; M75.41 Impingement syndrome of right shoulder; M75.21 Bicipital tendinitis, right shoulder; W19.XXXA Unspecified fall, initial encounter; Y92.9 Unspecified place or not applicable; G89.18 Other acute postprocedural pain
CPT/HCPCS: C1776; J0330; J0690; J1100; J2250; J2405; J2704; J3010

== ENCOUNTER → 2018-12-25 15:30 | Emergency (ER) | payer OTHER ==
[~2018-12-25 15:30] MED LIST changes: +Acetaminophen TAB* 325 MG PO ONE; -Buffered Lidocaine 0.9% SYRIN* 5 ML/SYR SYRINGE INTRADERM ONE; +Ketorolac INJ* 15 MG/ML 1 ML VIAL IV PUSH ONE; +NS 0.9% 1000 ML** 1,000 ML IV ONE
[2018-12-25 16:36] LABS: Influenza A Molecular NEGATIVE (Negative); Influenza B Molecular NEGATIVE (Negative)
[2018-12-25 16:46] LABS: ABS Basophils 0 10^3/ul (0-0.2); ABS Eosinophils 0.1 10^3/ul (0-0.6); ABS Monocytes 0.8 10^3/ul (0-0.8); ABS Neutrophils 4.5 10^3/ul (1.5-7.7); ABS Nucleated RBC 0 10^3/ul; Eosinophil % 1.1 %; Hematocrit 43 % (42-52); Hemoglobin 14.6 g/dl (14.0-18.0); Lymphocyte % 15.3 %; Mean Corpuscular HGB Conc 34 g/dl (31-36); Mean Corpuscular Hemoglobin 29 pg (27-31); Mean Corpuscular Volume 84 fL (80-94); Mean Platelet Volume 8.7 fL (7.4-10.4); Nucleated Red Blood Cells % 0; Platelet Count 208 10^3/ul (150-450); Red Blood Count 5.05 10^6/ul (4.00-5.40); Red Cell Distribution Width 15 % (10.5-15); White Blood Count 6.4 10^3/ul (3.5-10.8)
[2018-12-25 17:06] LABS: Albumin 4.2 g/dL (3.2-5.2); Albumin/Globulin Ratio 1.4 (1-3); BUN/Creatinine Ratio 11.4 (8-20); EGFR African American 89.4 (>60); EGFR Non-African American 73.9 (>60); Globulin 2.9 g/dL (2-4); Potassium 3.8 mmol/L (3.5-5.0); Total Bilirubin 1.2 mg/dL (0.2-1.0); Total Protein 7.1 g/dL (6.4-8.9)
--- NOTE | 2018-12-25 19:52 | ED ---
Influenza-Like Illness - HPI Summary HPI Summary: Pt is a 53 y/o M presenting to the ED with a chief complaint of flu-like symptoms onset yesterday worse since today. Pt reports ear pain, chest pain, pain in legs, rhinorrhea, decreased appetite, eye pain, and diarrhea. Pt denies vomiting, shortness of breath, or taking any medicine while he was at home. - History of Current Complaint Chief Complaint: EDFluSymptoms Time Seen by Provider: 12/25/18 19:41 Hx Obtained From: Patient Onset/Duration: Gradual Onset, Lasting Days, Still Present Severity: Moderate Associated Signs & Symptoms: Myalgia, Nasal Congestion, Diarrhea - Allergy/Home Medications Allergies/Adverse Reactions: Allergies Allergy/AdvReac Type Severity Reaction Status Date / Time No Known Allergies Allergy Verified 12/25/18 15:38 PMH/Surg Hx/FS Hx/Imm Hx Previously Healthy: Yes Endocrine/Hematology History: Denies: Hx Anticoagulant Therapy, Hx Blood Disorders, Hx Diabetes Cardiovascular History: Denies: Hx Congestive Heart Failure, Hx Hypertension, Hx Pacemaker/ICD Respiratory History: Denies: Hx Asthma, Hx Chronic Obstructive Pulmonary Disease (COPD) GI History: Reports: Hx Gastroesophageal Reflux Disease History: Denies: Hx Renal Disease Musculoskeletal History: Reports: Hx Arthritis - KNEES, HIPS, shoulders, Other Musculoskeletal History - HX OF INJURIES TO SHOULDERS, CHRONIC PAIN IN KNEES, HIPS Sensory History: Reports: Hx Contacts or Glasses - GLASSES Denies: Hx Hearing Aid Opthamlomology History: Reports: Hx Contacts or Glasses - GLASSES Psychiatric History: Denies: Hx Panic Disorder, Other Psychiatric Issues/Disorders - Cancer History Hx Chemotherapy: No - Surgical History Surgery Procedure, Year, and Place: RIGHT SHOULDER REPAIR- 12 YRS AGO- [facility]. LEFT KNEE ARTHROSCOPY- [facility]. ORIF LEFT KNEE- [facility]. LEFT KNEE HARDWARE REMOVAL- 2013- [facility] [place]. left [place] replacement, [place], [facility] [place]. LEFT TOTAL KNEE REPLACEMENT- 2014- [facility] [place] Hx Anesthesia Reactions: No Infectious Disease History: No Infectious Disease History: Denies: Hx Clostridium Difficile, Hx Hepatitis, Hx Human Immunodeficiency Virus (HIV), Hx of Known/Suspected MRSA, Hx Shingles, Hx Tuberculosis, History Other Infectious Disease, Traveled Outside the US in Last 30 Days - Family History Known Family History: Positive: Hypertension - Social History Alcohol Use: None Hx Substance Use: No Substance Use Type: Reports: None Hx Tobacco Use: No Smoking Status (MU): Never Smoked Tobacco Have You Smoked in the Last Year: No Review of Systems Positive: Ear Ache, Nasal Discharge Positive: Chest Pain Negative: Shortness Of Breath Positive: Diarrhea, Other - decreased appetite. Negative: Vomiting Positive: Myalgia - legs All Other Systems Reviewed And Are Negative: Yes Physical Exam - Summary Physical Exam Summary: VITAL SIGNS: Reviewed. GENERAL: Patient is a well-developed and nourished male who is lying comfortable in the stretcher. Patient is not in any acute respiratory distress. HEAD AND FACE: No signs of trauma. No ecchymosis, hematomas or skull depressions. No sinus tenderness. EYES: PERRLA, EOMI x 2, No injected conjunctiva, no nystagmus. EARS: Hearing grossly intact. Ear canals and tympanic membranes are within normal limits. MOUTH: Oropharynx within normal limits. NECK: Supple, trachea is midline, no adenopathy, no JVD, no carotid bruit, no c- spine tenderness, neck with full ROM. CHEST: Symmetric, no tenderness at palpation LUNGS: Clear to auscultation bilaterally. No wheezing or crackles. CVS: tachycardic, S1 and S2 present, no murmurs or gallops appreciated. ABDOMEN: Soft, non-tender. No signs of distention. No rebound no guarding, and no masses palpated. Bowel sounds are normal. EXTREMITIES: FROM in all major joints, no edema, no cyanosis or clubbing. NEURO: Alert and oriented x 3. No acute neurological deficits. Speech is normal and follows commands. SKIN: Dry and warm Triage Information Reviewed: Yes Vital Signs On Initial Exam: Initial Vitals Temp Pulse Resp BP Pulse Ox 99.8 F 104 16 132/94 97 12/25/18 15:36 12/25/18 15:36 12/25/18 15:36 12/25/18 15:36 12/25/18 15:36 Vital Signs Reviewed: Yes Diagnostics - Vital Signs Vital Signs Temp Pulse Resp BP Pulse Ox 12/25/18 17:52 99.6 F 105 18 126/87 99 12/25/18 15:36 99.8 F 104 16 132/94 97 - Laboratory Lab Results: Lab Results 02/06/0512/25/18 12/25/18 Range/Units 15:31 15:31 16:24 WBC 6.4 (3.5-10.8) 10^3/ul RBC 5.05 (4.00-5.40) 10^6/ul Hgb 14.6 (14.0-18.0) g/dl Hct 43 (42-52) % MCV 84 (80-94) fL MCH 29 (27-31) pg MCHC 34 (31-36) g/dl RDW 15 (10.5-15) % Plt Count 208 (150-450) 10^3/ul MPV 8.7 (7.4-10.4) fL Neut % (Auto) 70.4 % Lymph % (Auto) 15.3 % Freestone % (Auto) 12.6 % Eos % (Auto) 1.1 % Baso % (Auto) 0.6 % Absolute Neuts (auto) 4.5 (1.5-7.7) 10^3/ul Absolute Lymphs (auto) 1.0 (1.0-4.8) 10^3/ul Absolute Monos (auto) 0.8 (0-0.8) 10^3/ul Absolute Eos (auto) 0.1 (0-0.6) 10^3/ul Absolute Basos (auto) 0 (0-0.2) 10^3/ul Absolute Nucleated RBC 0 10^3/ul Nucleated RBC % 0 Sodium 139 (135-145) mmol/L Potassium 3.8 (3.5-5.0) mmol/L Chloride 104 (101-111) mmol/L Carbon Dioxide 29 (22-32) mmol/L Anion Gap 6 (2-11) mmol/L BUN 12 (6-24) mg/dL Creatinine 1.05 (0.67-1.17) mg/dL Est GFR ( Amer) 89.4 (>60) Est GFR (Non-Af Amer) 73.9 (>60) BUN/Creatinine Ratio 11.4 (8-20) Glucose 102 H (70-100) mg/dL Calcium 9.0 (8.6-10.3) mg/dL Total Bilirubin 1.20 H (0.2-1.0) mg/dL AST 14 (13-39) U/L ALT 9 (7-52) U/L Alkaline Phosphatase 45 (34-104) U/L Total Protein 7.1 (6.4-8.9) g/dL Albumin 4.2 (3.2-5.2) g/dL Globulin 2.9 (2-4) g/dL Albumin/Globulin Ratio 1.4 (1-3) Influenza A (Rapid) Negative (Negative) Influenza B (Rapid) Negative (Negative) Result Diagrams: 12/25/18 15:31 12/25/18 15:31 Lab Statement: Any lab studies that have been ordered have been reviewed, and results considered in the medical decision making process. - Radiology Chest x-ray Radiology Interpretation Completed By: ED Physician Summary of Radiographic Findings: No acute disease. Pending official radiology report. Flu Symptom Course/Dx - Course Course Of Treatment: Pt is a 53 y/o M presenting to the ED with a chief complaint of flu-like symptoms onset yesterday worse since today. Pt reports ear pain, chest pain, pain in legs, rhinorrhea, decreased appetite, eye pain, and diarrhea. Pt denies vomiting, shortness of breath, or taking any medicine while he was at home. Rapid flu test came back negative. Chest x-ray shows no acute disease. Pt will be discharged home with a dx of flu-like illness and instructions to f/u with his PCP in 1-2 days, as well as 3 days off of work. - Diagnoses Provider Diagnoses: Influenza-like illness Discharge - Sign-Out/Discharge Documenting (check all that apply): Patient Departure Patient Received Moderate/Deep Sedation with Procedure: No - Discharge Plan Condition: Stable Disposition: HOME Forms: *Work Release Referrals: John Paul Sellers MD [Primary Care Provider] - Additional Instructions: PLEASE FOLLOW UP WITH YOUR PRIMARY CARE PROVIDER IN 1-2 DAYS. TAKE YOUR PRESCRIBED MEDICINE INSTRUCTED. RETURN TO THE EMERGENCY DEPARTMENT WITH ANY NEW OR WORSENING SYMPTOMS. - Attestation Statements Document Initiated by Scribe: Yes Documenting Scribe: Carole Estrada Provider For Whom Andrew is Documenting (Include Credential): Cesia Coates MD. Scribe Attestation: Carole Barron, scribed for Cesia Coates MD. on 12/25/18 at 2058. Status of Scribe Document: Ready
[2018-12-25 21:00] LABS: Urine Appearance Clear; Urine Bilirubin Negative (Negative); Urine Blood Negative (Negative); Urine Color Yellow; Urine Glucose Negative (Negative); Urine Ketones Negative (Negative); Urine Nitrite Negative (Negative); Urine Protein Negative (Negative); Urine Specific Gravity 1.025 (1.010-1.030); Urine Urobilinogen Negative (Negative)
[2018-12-25 21:10] VITALS: BP 134/74
== END | disposition home or self-care (01) ==
LOC: ED 15:30
DX: J11.1 Influenza due to unidentified influenza virus with other respiratory manifestations (principal); Z96.642 Presence of left artificial hip joint; Z96.652 Presence of left artificial knee joint
CPT/HCPCS: 36415; 71045; 80053; 81003; 85025; 96374; 99283; A9270-GY; J1885

== ENCOUNTER 2019-01-10 02:09 | Emergency (ER) | payer OTHER ==
--- NOTE | 2019-01-10 02:26 | ED ---
Influenza-Like Illness - HPI Summary HPI Summary: A 53 y/o male brought in by [facility] ambulance presents to [facility] with a chief complaint of his flu-like symptoms worsening on the morning of 01/10/19. The patient came to the ED on 12/25/18 when he was diagnosed with influenza and was given 800mg ibuprofen. Although the patient has been taking ibuprofen he still reports cough, congestion, body aches, ear ringing, claims his eyes are on fire , SOB, and loss of appetite. Coughing aggravates his pain. At triage he rated his pain as an 8/10 in severity. He came to the ED because his symptoms prevented him from sleeping. He claims that he hasnt worked since shoulder surgery. He also reports that on 01/08/19 he had a temperature of 102. In the ED he has a temperature of 99.9. He denies a Hx of DM. Vital signs while in room - HR: 112bpm, O2 Sat: 96 BP: 119/100 - History of Current Complaint Chief Complaint: EDUpperRespComplaint Time Seen by Provider: 01/10/19 02:11 Hx Obtained From: Patient Onset/Duration: Gradual Onset, Lasting Weeks, Still Present Severity: Severe Associated Signs & Symptoms: Fever, Cough, Nasal Congestion - Allergy/Home Medications Allergies/Adverse Reactions: Allergies Allergy/AdvReac Type Severity Reaction Status Date / Time No Known Allergies Allergy Verified 12/25/18 15:38 PMH/Surg Hx/FS Hx/Imm Hx Endocrine/Hematology History: Denies: Hx Anticoagulant Therapy, Hx Blood Disorders, Hx Diabetes Cardiovascular History: Denies: Hx Congestive Heart Failure, Hx Hypertension, Hx Pacemaker/ICD Respiratory History: Denies: Hx Asthma, Hx Chronic Obstructive Pulmonary Disease (COPD) GI History: Reports: Hx Gastroesophageal Reflux Disease History: Denies: Hx Renal Disease Musculoskeletal History: Reports: Hx Arthritis - KNEES, HIPS, shoulders, Other Musculoskeletal History - HX OF INJURIES TO SHOULDERS, CHRONIC PAIN IN KNEES, HIPS Sensory History: Reports: Hx Contacts or Glasses - GLASSES Denies: Hx Hearing Aid Opthamlomology History: Reports: Hx Contacts or Glasses - GLASSES Psychiatric History: Denies: Hx Panic Disorder, Other Psychiatric Issues/Disorders - Cancer History Hx Chemotherapy: No - Surgical History Surgery Procedure, Year, and Place: RIGHT SHOULDER REPAIR- 12 YRS AGO- [facility]. [facility] LEFT KNEE ARTHROSCOPY- [facility]. ORIF LEFT KNEE- [facility]. LEFT KNEE HARDWARE REMOVAL- 2013- [facility] [place]. left hip replacement, 2016, [facility] [place]. LEFT TOTAL KNEE REPLACEMENT- 2014- [facility] [place] Hx Anesthesia Reactions: No Infectious Disease History: No Infectious Disease History: Denies: Hx Clostridium Difficile, Hx Hepatitis, Hx Human Immunodeficiency Virus (HIV), Hx of Known/Suspected MRSA, Hx Shingles, Hx Tuberculosis, History Other Infectious Disease, Traveled Outside the [place] in Last 30 Days - Family History Known Family History: Positive: Hypertension - Social History Alcohol Use: None Hx Substance Use: No Substance Use Type: Reports: None Hx Tobacco Use: No Smoking Status (MU): Never Smoked Tobacco Have You Smoked in the Last Year: No Review of Systems Positive: Fever - 102 [employer], 99.9 at triage Eyes: Other - positive: eyes "on fire" ENT: Other - positive: nasal congestion Positive: Ear Ache Positive: Shortness Of Breath, Cough Positive: Other - Positive: body aches All Other Systems Reviewed And Are Negative: Yes Physical Exam - Summary Physical Exam Summary: General: vital signs show tachycardia Appearance: Well-appearing, Well-nourished, lying in bed comfortably Skin: Warm, dry, no obvious rash Eyes: sclera anicteric, no conjunctival pallor ENT: mucous membranes moist, pharynx appears normal Neck: Supple, nontender Respiratory: Clear to auscultation, no signs of respiratory distress Cardiovascular: Normal S1, S2. No murmurs. Normal distal pulses in tibial and radial bilaterally. Abdomen: Soft, nontender, normal active bowel sounds present Musculoskeletal: Normal, Strength/ROM Intact Neurological: A&Ox3, awake and alert, mentation is normal, speech is fluent and appropriate Psychiatric: affect is normal, does not appear anxious or depressed Triage Information Reviewed: Yes Vital Signs On Initial Exam: Initial Vitals Temp Pulse Resp BP Pulse Ox 99.9 F 106 20 119/100 96 01/10/19 02:14 01/10/19 02:14 01/10/19 02:14 01/10/19 02:14 01/10/19 02:14 Vital Signs Reviewed: Yes Diagnostics - Vital Signs Vital Signs Temp Pulse Resp BP Pulse Ox 01/10/19 02:14 99.9 F 106 20 119/100 96 - Laboratory Result Diagrams: 01/10/19 02:34 01/10/19 02:34 Lab Statement: Any lab studies that have been ordered have been reviewed, and results considered in the medical decision making process. - EKG 02:19 Cardiac Rate: NL - 98 bpm EKG Rhythm: Sinus Rhythm - NSR at 98 BPM, P waves, QRS complex, and T waves are within normal limits, T waves and intervals are normal, no ischemic changes. This is a normal EKG. Flu Symptom Course/Dx - Course Course Of Treatment: A 53 y/o male brought in by [employer] ambulance presents to [facility] with a chief complaint of his flu-like symptoms worsening on the morning of 01/10/19. The patient came to the ED on 12/25/18 when he was diagnosed with influenza and was given 800mg ibuprofen. Although the patient has been taking ibuprofen he still reports cough, congestion, body aches, ear ringing, claims his eyes are on fire, SOB, and loss of appetite. Coughing aggravates his pain. At triage he rated his pain as an 8/10 in severity. He came to the ED because his symptoms prevented him from sleeping. He claims that he hasnt worked since shoulder surgery. He also reports that on 01/08/19 he had a temperature of 102. In the ED he has a temperature of 99.9. He denies a Hx of DM. The physical exam was unremarkable other than that his vital signs showed tachycardia. An EKG at 02:19 showed NSR at 98 BPM, P waves, QRS complex, and T waves are within normal limits, T waves and intervals are normal, no ischemic changes. This is a normal EKG. Bloodwork and chemistries obtained and are WNL. CXR showed no acute process. The patient will be discharged with a prescription for Zithromax. He is agreeable with this plan. - Diagnoses Provider Diagnoses: Bronchitis Discharge - Sign-Out/Discharge Documenting (check all that apply): Patient Departure - DC Patient Received Moderate/Deep Sedation with Procedure: No - Discharge Plan Condition: Good Disposition: HOME Prescriptions: Azithromycin TAB* [Zithromax TAB (Z-GLORIA) 250 mg #6 tabs] 250 mg PO DAILY #4 tab Patient Education Materials: Acute Bronchitis (ED) Referrals: John Paul Sellers MD [Primary Care Provider] - - Billing Disposition and Condition Condition: GOOD Disposition: Home - Attestation Statements Document Initiated by Colleenibe: Yes Documenting Scribe: Luis June Provider For Whom Andrew is Documenting (Include Credential): Gustavo Carmen MD Scribe Attestation: I, Luis June, scribed for Gustavo Carmen MD on 01/12/19 at 1557. Scribe Documentation Reviewed: Yes Provider Attestation: The documentation as recorded by the Luis levine accurately reflects the service I personally performed and the decisions made by me, Gustavo Carmen MD Status of Scribe Document: Viewed
[2019-01-10 02:45] LABS: Hematocrit 46 % (42-52); Hemoglobin 15.5 g/dl (14.0-18.0); Mean Corpuscular HGB Conc 34 g/dl (31-36); Mean Corpuscular Hemoglobin 28 pg (27-31); Mean Corpuscular Volume 84 fL (80-94); Mean Platelet Volume 8.7 fL (7.4-10.4); Platelet Count 188 10^3/ul (150-450); Red Blood Count 5.47 10^6/ul (4.00-5.40); Red Cell Distribution Width 14 % (10.5-15); White Blood Count 3.9 10^3/ul (3.5-10.8)
[2019-01-10 03:04] LABS: Albumin 4.1 g/dL (3.2-5.2); Albumin/Globulin Ratio 1.3 (1-3); BUN/Creatinine Ratio 15.3 (8-20); Calcium 8.6 mg/dL (8.6-10.3); EGFR African American 83.8 (>60); EGFR Non-African American 69.3 (>60); Globulin 3.2 g/dL (2-4); Potassium 3.9 mmol/L (3.5-5.0); Total Bilirubin 0.5 mg/dL (0.2-1.0); Total Protein 7.3 g/dL (6.4-8.9)
[2019-01-10 03:14] LABS: ABS Basophils 0 10^3/ul (0-0.2); ABS Eosinophils 0 10^3/ul (0-0.6); ABS Monocytes 0.6 10^3/ul (0-0.8); ABS Neutrophils 2.2 10^3/ul (1.5-7.7); ABS Nucleated RBC 0 10^3/ul; Eosinophil % 1.3 %; Lymphocyte % 26.6 %; Nucleated Red Blood Cells % 0.1
[2019-01-10] MEDS ORDERED: Azithromycin TAB* 250 MG PO ONE (03:17)
[2019-01-10 03:36] VITALS: BP 136/95
== END 2019-01-10 03:35 | disposition home or self-care (01) ==
LOC: ED 02:09
DX: J40 Bronchitis, not specified as acute or chronic (principal); Z96.642 Presence of left artificial hip joint; Z96.652 Presence of left artificial knee joint
CPT/HCPCS: 36415; 71046; 80053; 83605; 84484; 85025; 87040; 93005; 99283; A9270-GY

== ENCOUNTER 2019-06-27 06:38 | Emergency (ER) | payer OTHER ==
--- NOTE | 2019-06-27 07:37 | ED ---
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 He has tried to ignore the pain but states that it has gotten too severe and rates his pain severity a 9/10. He also reports CP and Abd pain but denies any burning or hematuria. He mentions that he CP is aggravated with movement and sitting up and describes the pain as cutting the breath. No alleviating factors noted. He notes that he is taking pills for GI illness and reports having been unable to keep food in stomach for several days. He denies smoking, EtOH use, or drug abuse. He has Hx of GERD. - History of Current Complaint Chief Complaint: EDBackInjuryPain Stated Complaint: LOWER BACK PAIN PER PT Time Seen by Provider: 06/27/19 07:19 Hx Obtained From: Patient Onset/Duration: Sudden Onset, Lasting Days, Still Present Timing: Constant, Lasting Days Severity Initially: Severe Severity Currently: Severe Pain Intensity: 9 Pain Scale Used: 0-10 Numeric Character: Stiffness - CP that "cuts the breath" Aggravating Symptom(s): Movement - aggravates CP, Other - sitting up aggravates CP Alleviating Symptom(s): Nothing Associated Signs And Symptoms: Positive: Abdominal Pain, Other - Pos - CP that "cuts the breath", "unable to keep food down". Neg - Hematuria, Burning - Allergies/Home Medications Allergies/Adverse Reactions: Allergies Allergy/AdvReac Type Severity Reaction Status Date / Time No Known Allergies Allergy Verified 06/27/19 06:43 Home Medications: Home Medications Omeprazole 40 mg PO DAILY 06/27/19 [History Confirmed 06/27/19] PMH/Surg Hx/FS Hx/Imm Hx Endocrine/Hematology History: Denies: Hx Anticoagulant Therapy, Hx Blood Disorders, Hx Diabetes Cardiovascular History: Denies: Hx Congestive Heart Failure, Hx Hypertension, Hx Pacemaker/ICD Respiratory History: Denies: Hx Asthma, Hx Chronic Obstructive Pulmonary Disease (COPD) GI History: Reports: Hx Gastroesophageal Reflux Disease History: Denies: Hx Renal Disease Musculoskeletal History: Reports: Hx Arthritis - KNEES, HIPS, shoulders, Other Musculoskeletal History - HX OF INJURIES TO SHOULDERS, CHRONIC PAIN IN KNEES, HIPS Sensory History: Reports: Hx Contacts or Glasses - GLASSES Denies: Hx Hearing Aid Opthamlomology History: Reports: Hx Contacts or Glasses - GLASSES Psychiatric History: Denies: Hx Panic Disorder, Other Psychiatric Issues/Disorders - Cancer History Hx Chemotherapy: No - Surgical History Surgery Procedure, Year, and Place: RIGHT SHOULDER REPAIR- 12 YRS AGO- [facility]. [facility] LEFT KNEE ARTHROSCOPY- [facility]. ORIF LEFT KNEE- [facility]. LEFT KNEE HARDWARE REMOVAL- 2013- [facility]. left hip replacement, 2016, [facility] [place]. LEFT TOTAL KNEE REPLACEMENT- 2014- [facility] Hx Anesthesia Reactions: No - Immunization History Immunizations Up to Date: Yes Infectious Disease History: No Infectious Disease History: Denies: Hx Clostridium Difficile, Hx Hepatitis, Hx Human Immunodeficiency Virus (HIV), Hx of Known/Suspected MRSA, Hx Shingles, Hx Tuberculosis, History Other Infectious Disease, Traveled Outside the in Last 30 Days - Family History Known Family History: Positive: Hypertension - Social History Alcohol Use: None Hx Substance Use: No Substance Use Type: Reports: None Hx Tobacco Use: No Smoking Status (MU): Never Smoked Tobacco Have You Smoked in the Last Year: No Review of Systems Positive: Chest Pain Positive: Other - pos - CP "cuts the breath" Positive: Abdominal Pain, Other - pos - "unable to keep food down" Negative: burning, hematuria Positive: Other - Pos - Back pain All Other Systems Reviewed And Are Negative: Yes Physical Exam - Summary Physical Exam Summary: GENERAL: Patient is a well-developed and nourished male who is lying comfortable in the stretcher. Patient is not in any acute respiratory distress. HEAD AND FACE: Normocephalic EYES: PERRLA, EOMI x 2. EARS: Hearing grossly intact. MOUTH: Oropharynx within normal limits. NECK: Supple, trachea is midline, no adenopathy, no JVD, no carotid bruit. CHEST: Symmetric, no tenderness at palpation BACK: Tenderness in the lumbar spinal area. LUNGS: Clear to auscultation bilaterally. No wheezing or crackles. CVS: Regular rate and rhythm, S1 and S2 present, no murmurs or gallops appreciated. ABDOMEN: Soft. Mild tenderness to palpation in the epigastric region. Bowel sounds are normal. No abnormal abdominal pulsations. EXTREMITIES: Full ROM in all major joints, no edema, no cyanosis or clubbing. NEURO: Alert and oriented x 3. No acute neurological deficits. Speech is normal and follows commands. SKIN: Dry and warm. Triage Information Reviewed: Yes Vital Signs On Initial Exam: Initial Vitals Temp Pulse Resp BP Pulse Ox 98.5 F 89 19 135/91 97 06/27/19 06:40 06/27/19 06:40 06/27/19 06:40 06/27/19 06:40 06/27/19 06:40 Vital Signs Reviewed: Yes Diagnostics - Vital Signs Vital Signs Temp Pulse Resp BP Pulse Ox 06/27/19 06:40 98.5 F 89 19 135/91 97 - Laboratory Result Diagrams: 06/27/19 08:22 06/27/19 08:22 Lab Statement: Any lab studies that have been ordered have been reviewed, and results considered in the medical decision making process. - EKG 0751 Cardiac Rate: NL - 75 bpm EKG Rhythm: Sinus Rhythm Summary of EKG Findings: Sinus Rhythm @ 75 BPM. Normal [employer]. Normal Intervals. Normal EKG. Re-Evaluation - Re-Evaluation First Eval Re-Evaluation Time: 11:02 Change: Improved Comment: Pt's back pain has improved but has burning sensation in abd. Will give the pt a GI cocktail before discharge. 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 The pt had CT scans prior to this visit that were normal. It is suggested that the epigastric pain is caused by reflux. The pt has a plan to follow up with his GI physician. The pt will be discharged. I discussed results with patient, and he reports feeling better. He is hemodynamically stable and safe for discharge. Strict return precautions given and he will otherwise follow up with his PCP and GI physician. - Diagnoses Provider Diagnoses: Back pain, DDD (degenerative disc disease), Epigastric pain Discharge - Sign-Out/Discharge Documenting (check all that apply): Patient Departure - Discharge Patient Received Moderate/Deep Sedation with Procedure: No - Discharge Plan Condition: Stable Disposition: HOME Patient Education Materials: Back Pain (ED), Degenerative Disc Disease (ED), Epigastric Pain (ED) Referrals: John Paul Sellers MD [Primary Care Provider] - 3 Days Additional Instructions: Follow up with your primary care physician and GI physician in 1-3 days. RETURN TO THE EMERGENCY DEPARTMENT FOR CHANGING OR WORSENING SYMPTOMS. - Billing Disposition and Condition Condition: STABLE Disposition: Home - Attestation Statements Document Initiated by Scribe: Yes Documenting Scribe: Horace Mackay Provider For Whom Colleenibdeepika is Documenting (Include Credential): Goldie Sparks MD Scribe Attestation: Horace Barron, scribed for Goldie Sparks MD on 06/27/19 at 1207. Scribe Documentation Reviewed: Yes Provider Attestation: The documentation as recorded by the Horace levine accurately reflects the service I personally performed and the decisions made by Bridger schmidt Tudie-Ann MD Status of Scribe Document: Viewed
[2019-06-27] MEDS ORDERED: NS 0.9% 1000 ML** 1,000 ML IV ONE (07:38)
[2019-06-27 08:32] LABS: ABS Eosinophils 0.1 10^3/ul (0-0.6); ABS Lymphocytes 1.3 10^3/ul (1.0-4.8); ABS Monocytes 0.5 10^3/ul (0-0.8); ABS Neutrophils 2.2 10^3/ul (1.5-7.7); Hematocrit 44 % (42-52); Lymphocyte % 30.8 %; Mean Corpuscular HGB Conc 34 g/dL (31-36); Mean Corpuscular Hemoglobin 29 pg (27-31); Mean Corpuscular Volume 85 fL (80-94); Mean Platelet Volume 8.9 fL (7.4-10.4); Nucleated Red Blood Cells % 0.1; Platelet Count 190 10^3/uL (150-450); Red Blood Count 5.16 10^6 /uL (4.18-5.48); Red Cell Distribution Width 14 % (10-15); White Blood Count 4.1 10^3/uL (3.5-10.8)
[2019-06-27 08:48] LABS: Activated Partial Thrombo Time 34.5 seconds (26.0-38.0); INR 0.91 (0.82-1.09)
[2019-06-27 08:56] LABS: Calcium 8.8 mg/dL (8.6-10.3); Magnesium 2.1 mg/dL (1.9-2.7); Potassium 4.4 mmol/L (3.5-5.0); Total Bilirubin 0.6 mg/dL (0.2-1.0)
[2019-06-27 09:03] LABS: Albumin/Globulin Ratio 1.4 (1-3); BUN/Creatinine Ratio 14.2 (8-20); CRP High Sensitivity 1.96 mg/L (<2.00); EGFR African American 88.1 (>60); EGFR Non-African American 72.8 (>60); Globulin 2.9 g/dL (2-4); Total Protein 6.9 g/dL (6.4-8.9)
[2019-06-27] MEDS ORDERED: Cyclobenzaprine TAB* 10 MG PO ONE (09:40)
[2019-06-27] MEDS ORDERED: Ketorolac *IM* INJ* 60 MG/2 ML VIAL IM ONE (09:40)
[2019-06-27] MEDS ORDERED: Dexamethasone IV* 4 MG/ML 1 ML (4 MG) IM ONE (09:40)
[2019-06-27] MEDS ORDERED: Dexamethasone IV* 4 MG/ML 1 ML (4 MG) IV SLOW PU ONE (09:51)
[2019-06-27] MEDS ORDERED: Ketorolac INJ* 30 MG/ML 1 ML VIAL IV PUSH ONE (09:51)
[2019-06-27 10:11] LABS: Urine Appearance Clear; Urine Bacteria Absent (Absent); Urine Bilirubin Negative (Negative); Urine Blood 1+ (Negative); Urine Color Yellow; Urine Glucose Negative (Negative); Urine Ketones Negative (Negative); Urine Nitrite Negative (Negative); Urine Protein Negative (Negative); Urine Red Blood Cell Trace(0-2/hpf) (Absent); Urine Specific Gravity 1.016 (1.010-1.030); Urine Urobilinogen Negative (Negative); Urine White Blood Cell Trace(0-5/hpf) (Absent)
[2019-06-27] MEDS ORDERED: Lidocaine 2% VISCOUS* 15 ML UDC PO ONE (11:02)
[2019-06-27] MEDS ORDERED: Al Hydrox/Mg Hydrox/Simet LIQ* 30 ML UDC PO ONE (11:02)
[2019-06-27 11:39] VITALS: BP 146/105
== END 2019-06-27 11:46 | disposition home or self-care (01) ==
LOC: ED 06:38
DX: M51.36 Other intervertebral disc degeneration, lumbar region (principal); M54.9 Dorsalgia, unspecified; R10.13 Epigastric pain; K21.9 Gastro-esophageal reflux disease without esophagitis; Z79.899 Other long term (current) drug therapy
CPT/HCPCS: 36415; 71045; 72110; 80053; 81003; 81015; 83605; 83690; 83735; 83880; 84484; 85025; 85379; 85610; 85730; 86141; 87086; 93005; 96361; 96372; 96374; 96375; 99283; A9270-GY; J1100; J1885

== ENCOUNTER 2019-11-27 07:43 | Day surgery (SDC) | payer OTHER ==
[2019-11-27] MEDS ORDERED: ceFAZolin 2 GM PREMIX in ORs 2 GM/50 ML BAG ONE (08:46)
[2019-11-27] MEDS ORDERED: Buffered Lidocaine 1% SYRIN* 1 ML/SYRINGE INTRADERM ONE (08:46)
[2019-11-27] MEDS ORDERED: EPINEPHRINE 1 MG/ML 1 ML VIAL ONE (10:52)
[2019-11-27] MEDS ORDERED: Bupivacaine 0.25% EPI 200,000* 30 ML SDV ONE (10:52)
[2019-11-27] MEDS ORDERED: Midazolam* 1 MG/ML 5 ML VIAL (5 MG) ONE (10:54)
[2019-11-27] MEDS ORDERED: ROPIVACAINE 5 MG/ML 30 ML BTL (0.5%) ONE (10:56)
[2019-11-27] MEDS ORDERED: Rocuronium* 10 MG/ML VIAL ONE ×2 (11:36→12:31)
[2019-11-27] MEDS ORDERED: Propofol* 10 MG/ML 20 ML BTL ONE (11:36)
[2019-11-27] MEDS ORDERED: Ondansetron INJ* 2 MG/ML VIAL IV PRN (12:18)
[2019-11-27] MEDS ORDERED: Naloxone* 0.4 MG/ML 1 ML VIAL IV PRN (12:18)
[2019-11-27] MEDS ORDERED: HYDROmorphone INJ1* 1 MG/ML SYRINGE ONE ×2 (12:59→15:24)
[2019-11-27] MEDS ORDERED: Sugammadex * 200 MG/2 ML VIAL IV PUSH ONE (13:46)
[2019-11-27] MEDS ORDERED: Dexamethasone IV* 4 MG/ML 1 ML (4 MG) ONE (13:46)
[2019-11-27] MEDS: HYDROmorphone INJ1* 1 MG/ML SYRINGE IV PRN ×2 (15:25→15:37)
[2019-11-27 17:05] VITALS: BP 131/85
--- NOTE | 2019-11-28 00:02 | OP ---
OPERATIVE REPORT: DATE OF OPERATION: 11/27/19 DATE OF : 65 SURGEON: Jonathon Jones MD ANALYTICAL LAB TECHNICIAN: CARLOS Robles A physician plumber assistant was required for the length of the procedure for assistance with patient positi oning, retraction, instrumentation and closure. ANESTHESIOLOGIST: Dr. Kory Flaherty. ANESTHESIA: General anesthesia, regional interscalene block anesthesia, local anesthesia consisting of 10 cc of Marcaine 0.25% with epinephrine. PRE-OP DIAGNOSES: 1. Left shoulder rotator cuff tendon tear, supraspinatus. 2. Left shoulder subacromial impingement and bursitis. 3. Left shoulder acromioclavicular joint osteoarthritis. 4. Likely left shoulder proximal biceps tendinosis. POST-OP DIAGNOSES: 1. Left shoulder rotator cuff tendon tear, supraspinatus and anterior infraspinatus. 2. Left shoulder subacromial impingement and bursitis. 3. Left shoulder acromioclavicular joint osteoarthritis. 4. Left shoulder proximal biceps tendinosis. OPERATIVE PROCEDURE: 1. Left shoulder arthroscopic rotator cuff tendon repair, double row, 3 anchor, supraspinatus and an terior infraspinatus. 2. Left shoulder arthroscopic subacromial decompression. 3. Left shoulder arthroscopic distal clavicle resection. 4. Left shoulder arthroscopic biceps tenodesis. ANTIBIOTICS: Ancef 2 g IV. IV FLUIDS: See Anesthesia note. [id number] TIME: 124 minutes. SPECIMEN: None. IMPLANTS: Arthrex corkscrew 5.5 mm suture anchors, double loaded with suture tape, x2. Arthrex Swiv eLock suture anchor, 4.75 mm, x1. ESTIMATED BLOOD LOSS: Minimal. COMPLICATIONS: None. INDICATIONS FOR PROCEDURE: The patient is a 54-year-old man, on whom I have done a right shoulder ro tator cuff repair surgery in the past, who presented to me with extreme left shoulder pain earlier in the year. The pain was so severe that the patient opted to delay a hip arthroplasty surgery that souza d been scheduled to have this left shoulder rotator cuff tendon repair done first. The patient respo nded insufficiently to nonoperative management and opted for surgery. Preoperatively, given that the patient's supraspinatus was retracted to just lateral to the glenoid, I was concerned about the possibility that the rotator cuff tendon would not be repairable. I should say that this was also because of significant fatty atrophy of both the supraspinatus and the subsca pularis muscle bellies. I discussed risks and potential complications with the patient preoperatively. Also discussed biceps release versus tenodesis and pros and cons of each. The patient preferred a biceps tenodesis as he h ad done in prior contralateral right shoulder. DESCRIPTION OF PROCEDURE: In preoperative holding, the patient signed a written consent. Operative extremity was marked in the preoperative holding. The patient underwent interscalene regional nerve block in preoperative holding. The patient was taken back to the operating room and placed supine on the operating room table. Sedated and intubated. The patient was converted to the lateral decubitus position. Axillary roll. All bony prominences pa dded. Left shoulder placed in longitudinal traction, 15 pounds, appropriate amount of forward flexio n and abduction. Left shoulder was prepped and draped. Formal surgical time-out performed. Spinal needle was used to enter the glenohumeral joint from posterior. 30 cc of normal saline were i nfused. I then established a posterior glenohumeral joint portal and started diagnostic arthroscopy. Clear full thickness supraspinatus rotator cuff tendon tear was visualized. It did not seem retracte d to the level of the glenoid, so I was very optimistic about the possibility of a successful repair. No subscapularis tendon tear. No significant articular cartilage injury. There was some tendinosis along the length of the biceps, so I decided to release that. I established anterior glenohumeral joint portal under direct visualization. I used the arthroscopic scissors to cut the biceps near its origin. There was a retraction, but the biceps was still visibl e in the groove entering the glenohumeral joint. Next, established anterior and posterior subacromial portals. Under direct visualization, created la teral and posterolateral subacromial portals. Used an arthroscopic shaver to debride subacromial bur sitic tissue. Identified the rotator cuff tendon tear. It was retracted, but just to the level of t he apex of the humeral head, less than expected by MRI. The patient was noted to have quite a large humerus and shoulder in general. The patient had much curving about the anterior aspect of the acromion as appreciated on preoperative advanced imaging. I used a VAPR and cleaned up the undersurface of the acromion. Then, I used an a rthroscopic amaya to smooth out a significant amount of bone from the hook of the anterior aspect of t gerry acromion, nicely flattening out the acromial undersurface. Next procedure rotator cuff repair: Having done a significant subacromial bursectomy I had great vis ualization of the rotator cuff. I prepared the footprint with a cautery device and then an arthOberon Media pic amaya. I then threw superolateral poke holes placed 2 medial row corkscrew suture anchors. With a plastic cannula placed from lateral, I passed horizontal mattress sutures and then tied the stitche s after all the sutures had been passed. Rotator cuff repair was excellent with this first medial row. Excellent coverage of the head, excell ent stability looked anatomic. I took half of the suture tapes from the medial row and placed them into a lateral row anchor. Repai r was very stable to probing and to visualization with movement of the humerus. Excellent significan t amount of coverage of the humeral head now looking anatomic. Moved to the AC joint. Used cautery to remove synovitic tissue about it. I used a amaya to debride t gerry 8 mm from the distal end of the clavicle. This opened up the AC joint nicely. At this time, I al so removed some additional acromion undersurface with the amaya. I closed skin incisions with [id number] and twelve stitches using nylon 3.0 suture. Took left shoulder out of longitudinal traction and converted the patient to a semisupine position. Marked anteromedial aspect of the upper arm. Made skin incision and dissected down to bicipital groo ve. Placed retractors. Several times tried to pull what was clearly the long head of the biceps ten don. It was clearly nonmobile. I followed it up the bicipital groove and clearly not free. Clearly , it had been tenodesed with the anterior stitch of the rotator cuff repair. Since there had been a de facto arthroscopic biceps tenodesis, inadvertent, I was comfortable not also doing an open biceps tenodesis, so I irrigated and then closed this incision. I closed subcutaneous tissue with buried si mple stitches using Vicryl 3.0 suture. Closed subcuticular layer with running stitch using Monocryl 3.0 suture. Biceps incision then had Mastisol and Steri-Strips placed. [address] cc of local anesthesia pl aced around it. 4x4 and then Tegaderm. Arthroscopic skin incisions have placed Xeroform, 4x4s, ABDs , foam tape. Sling and abduction pillow. The patient awakened, extubated and taken to the PACU. DISPOSITION: Wound care instructions provided. Percocet as needed for pain control and 3 days of Ke flex antibiotics. The patient will follow up with me in 10 to 14 days postoperatively. Sling for 6 weeks. No physical therapy for 6 weeks. [id number]/[facility] #: [id number]
== END 2019-11-27 17:31 | disposition home or self-care (01) ==
LOC: OR 07:43
PROVIDERS: ATTEND Orthopaedic Surgery
DX: M77.12 Lateral epicondylitis, left elbow (principal); S53.432A Radial collateral ligament sprain of left elbow, initial encounter; X58.XXXA Exposure to other specified factors, initial encounter; Y93.K1 Activity, walking an animal; Y92.9 Unspecified place or not applicable; M67.422 Ganglion, left elbow; G89.18 Other acute postprocedural pain; I10 Essential (primary) hypertension; E11.9 Type 2 diabetes mellitus without complications; Z79.84 Long term (current) use of oral hypoglycemic drugs; Z86.718 Personal history of other venous thrombosis and embolism
CPT/HCPCS: C1713; C1776; J0690; J1100; J1170; J2250; J2704; J2795

== ENCOUNTER 2021-03-10 05:43 | Observation (INO) ==
[2021-03-10] MEDS ORDERED: Lactated Ringers 1000 ml BAG 1,000 ML IV SCH (06:00)
[2021-03-10] MEDS ORDERED: ceFAZolin 2 GM in NS PREMIX 2 GM/100 ML BAG IVPB ONE (06:00)
[2021-03-10] MEDS ORDERED: Buffered Lidocaine 1% SYRIN 1 ml INTRADERM ONE ×2 (06:00)
[2021-03-10] MEDS ORDERED: Dexamethasone IV 4 MG/ML VIAL 1 ml VIAL ONE (06:55)
[2021-03-10] MEDS ORDERED: Dexmedetomidine 200 mcg/2 ml 2 ml VIAL (200 mcg) ONE (06:55)
[2021-03-10] MEDS ORDERED: Lidocaine 2% PF 5 ML VIAL ONE (06:55)
[2021-03-10] MEDS ORDERED: Propofol 10 MG/ML 20 ML BTL ONE ×2 (06:55→07:08)
[2021-03-10] MEDS ORDERED: Ondansetron 4 mg VIAL 2 MG/ML 2 ml VIAL ONE (06:55)
[2021-03-10] MEDS ORDERED: Midazolam 2 mg/2 ml VIAL 1 mg/ml 2 ml VIAL (2 mg) ONE (07:10)
[2021-03-10] MEDS ORDERED: Ropivacaine 5 MG/ML 20 ML VIAL 0.5% (100 MG) ONE (07:22)
[2021-03-10] MEDS ORDERED: Midazolam 5 mg/5 ml VIAL 1 mg/ml 5 ml VIAL (5 mg) ONE (07:29)
[2021-03-10] MEDS ORDERED: fentaNYL 100 mcg/2 ml 50 MCG/ML VIAL ONE (07:42)
[2021-03-10] MEDS ORDERED: Phenylephrine 40 mcg/mL 10mL (400mcg) SYRINGE ONE (08:31)
[2021-03-10] MEDS ORDERED: Ondansetron ODT 4 mg TAB 4 MG TAB PO PRN (08:38)
[2021-03-10] MEDS ORDERED: oxyCODONE/Acetamin 5/325 mg TAB PO PRN ×2 (08:38→09:37)
[2021-03-10] MEDS ORDERED: Magnesium Hydroxide LIQ 30 ML UDC PO PRN (08:38)
[2021-03-10] MEDS ORDERED: Morphine 2 MG/ML SYRINGE IV PRN (08:38)
[2021-03-10] MEDS ORDERED: Ondansetron 4 mg VIAL 2 MG/ML 2 ml VIAL IV PRN ×2 (08:38→09:37)
[2021-03-10] MEDS ORDERED: diPHENhydraMINE 25 mg TAB PO PRN (08:38)
[2021-03-10] MEDS ORDERED: Lactulose 30 ml UDC PO PRN (08:38)
[2021-03-10] MEDS ORDERED: diPHENhydraMINE IV 50 MG/ML 1 ml VIAL (BENADRYL) IV PRN (08:38)
[2021-03-10] MEDS ORDERED: Phenylephrine IV 10 MG/ML 1 ml VIAL ONE (08:50)
[2021-03-10] MEDS ORDERED: DiMENhydriNATE IV 50 mg/ml 1 ml VIAL IV PUSH PRN (09:37)
[2021-03-10] MEDS ORDERED: Naloxone 0.4 mg VIAL 0.4 mg/ml 1 ml VIAL IV PRN (09:37)
[2021-03-10] MEDS ORDERED: fentaNYL 100 mcg/2 ml 50 MCG/ML VIAL IV PRN (09:37)
[2021-03-10] MEDS: Lactated Ringers 1000 ml BAG 1,000 ML IV SCH (14:41)
[2021-03-10] MEDS: Vitamin THERAPEUTIC TAB PO SCH (15:46)
[2021-03-10] MEDS: Magnesium Hydroxide LIQ 30 ML UDC PO SCH ×2 (15:46→21:51)
[2021-03-10] MEDS: ceFAZolin 1 GM ADVAN 1 GM in NS 0.9% 50 ML 50 ML IVPB SCH ×2 (16:33→23:15)
[2021-03-11] MEDS: Lactated Ringers 1000 ml BAG 1,000 ML IV SCH (01:05)
[2021-03-11 05:16] LABS: Hematocrit 35 % (42-52); Hemoglobin 12.1 g/dL (14.0-18.0); Mean Platelet Volume 8.7 fL (7.4-10.4); Platelet Count 154 10^3/uL (150-450)
[2021-03-11 05:51] LABS: Calcium 8.4 mg/dL (8.6-10.3); EGFR African American 92.8 (>60); EGFR Non-African American 76.7 (>60); Potassium 3.8 mmol/L (3.5-5.0)
[2021-03-11] MEDS: ceFAZolin 1 GM ADVAN 1 GM in NS 0.9% 50 ML 50 ML IVPB SCH (07:47)
[2021-03-11] MEDS: Magnesium Hydroxide LIQ 30 ML UDC PO SCH (07:48)
[2021-03-11] MEDS: Vitamin THERAPEUTIC TAB PO SCH (07:48)
[2021-03-11 12:00] VITALS: BP 134/77
== END 2021-03-11 13:50 | disposition home or self-care (01) ==
LOC: OR 05:43 → SSU 05:43 → EDSTATUS 07:30
PROVIDERS: ADMIT Orthopaedic Surgery Adult Reconstructive Orthopaedic Surgery; ATTEND Orthopaedic Surgery Adult Reconstructive Orthopaedic Surgery

== ENCOUNTER 2021-03-29 11:53 | Inpatient (IN) ==
[2021-03-29] MEDS ORDERED: NS 0.9% 1000 ml BAG 1,000 ML IV ONE ×2 (12:16→12:34)
[2021-03-29] MEDS ORDERED: Piperacillin/Tazobac ADVAN 3.375 GM in NS 0.9% 100 ml BAG 100 ML IVPB ONE (12:33)
[2021-03-29 12:40] LABS: ABS Lymphocytes 0.8 10^3/ul (1.0-4.8); ABS Monocytes 0.3 10^3/ul (0-0.8); Eosinophil % 0.1 %; Hematocrit 36 % (42-52); Hemoglobin 12.6 g/dL (14.0-18.0); Lymphocyte % 24.6 %; Mean Corpuscular HGB Conc 35 g/dL (31-36); Mean Corpuscular Hemoglobin 28 pg (27-31); Mean Corpuscular Volume 81 fL (80-94); Mean Platelet Volume 8.4 fL (7.4-10.4); Platelet Count 307 10^3/uL (150-450); Red Blood Count 4.44 10^6 /uL (4.18-5.48); Red Cell Distribution Width 15 % (10-15); White Blood Count 3.1 10^3/uL (3.5-10.8)
[2021-03-29 12:55] LABS: Activated Partial Thrombo Time 23.6 seconds (26.0-38.0); INR 1.16 (0.82-1.09)
[2021-03-29 13:12] LABS: Albumin 3.7 g/dL (3.2-5.2); Calcium 8.9 mg/dL (8.6-10.3); EGFR African American 83.2 (>60); EGFR Non-African American 68.8 (>60); Globulin 3.8 g/dL (2-4); Potassium 4.1 mmol/L (3.5-5.0); Total Bilirubin 0.7 mg/dL (0.2-1.0); Total Protein 7.5 g/dL (6.4-8.9)
[2021-03-29] MEDS ORDERED: Vancomycin 2,000 MG in NS 0.9% 500 ml BAG 500 ML IVPB ONE (14:00)
[2021-03-29 14:38] LABS: Urine Appearance Cloudy; Urine Bilirubin Negative (Negative); Urine Blood Negative (Negative); Urine Color Amber; Urine Glucose Negative (Negative); Urine Ketones 1+ (Negative); Urine Nitrite Negative (Negative); Urine Protein 1+(30 mg/dL) (Negative); Urine Specific Gravity 1.029 (1.002-1.030); Urine Urobilinogen Negative (Negative)
[2021-03-29 14:43] LABS: Urine Bacteria Absent (Absent); Urine Red Blood Cell Trace(0-2/hpf) (Absent); Urine Squamous Epithelial Cell Present (Absent); Urine White Blood Cell Trace(0-5/hpf) (Absent)
[2021-03-29] MEDS ORDERED: Magnesium Hydroxide LIQ 30 ML UDC PO PRN (15:58)
[2021-03-29] MEDS ORDERED: oxyCODONE/Acetamin 5/325 mg TAB PO PRN (16:00)
[2021-03-29 17:47] LABS: C Reactive Protein 21.53 mg/L (<8.01)
[2021-03-29 17:49] LABS: Troponin I 0.01 ng/mL (<0.03)
[2021-03-29] MEDS: NS 0.9% 1000 ml BAG 1,000 ML IV SCH (18:04)
[2021-03-30] MEDS: Ondansetron 4 mg VIAL 2 MG/ML 2 ml VIAL IV PRN ×2 (02:24→14:21)
[2021-03-30 06:28] LABS: ABS Lymphocytes 0.8 10^3/ul (1.0-4.8); ABS Monocytes 0.2 10^3/ul (0-0.8); ABS Neutrophils 2.2 10^3/ul (1.5-7.7); Eosinophil % 0.3 %; Hematocrit 32 % (42-52); Hemoglobin 10.8 g/dL (14.0-18.0); Lymphocyte % 23.3 %; Mean Corpuscular HGB Conc 34 g/dL (31-36); Mean Corpuscular Hemoglobin 28 pg (27-31); Mean Corpuscular Volume 82 fL (80-94); Mean Platelet Volume 8.9 fL (7.4-10.4); Platelet Count 255 10^3/uL (150-450); Red Blood Count 3.88 10^6 /uL (4.18-5.48); Red Cell Distribution Width 15 % (10-15); White Blood Count 3.3 10^3/uL (3.5-10.8)
[2021-03-30 06:44] LABS: Calcium 7.9 mg/dL (8.6-10.3); EGFR African American 114.8 (>60); EGFR Non-African American 94.9 (>60); Potassium 3.9 mmol/L (3.5-5.0)
[2021-03-30] MEDS: NS 0.9% 1000 ml BAG 1,000 ML IV SCH (08:13)
[2021-03-30] MEDS ORDERED: Senna TAB 8.6 mg TAB PO PRN (11:00)
[2021-03-30] MEDS: Polyethylene Glycol 3350 17 GM PACKET PO SCH (13:09)
[2021-03-31 07:00] LABS: ABS Lymphocytes 0.8 10^3/ul (1.0-4.8); ABS Monocytes 0.2 10^3/ul (0-0.8); ABS Neutrophils 2.7 10^3/ul (1.5-7.7); Eosinophil % 0.3 %; Hematocrit 33 % (42-52); Hemoglobin 11.2 g/dL (14.0-18.0); Lymphocyte % 21.8 %; Mean Corpuscular HGB Conc 34 g/dL (31-36); Mean Corpuscular Hemoglobin 28 pg (27-31); Mean Corpuscular Volume 82 fL (80-94); Nucleated Red Blood Cells % 0.1; Platelet Count 235 10^3/uL (150-450); Red Blood Count 4.01 10^6 /uL (4.18-5.48); Red Cell Distribution Width 14 % (10-15); White Blood Count 3.8 10^3/uL (3.5-10.8)
[2021-03-31] MEDS: Polyethylene Glycol 3350 17 GM PACKET PO SCH (07:46)
[2021-03-31] MEDS: NS 0.9% 1000 ml BAG 1,000 ML IV SCH (07:49)
[2021-03-31] MEDS ORDERED: Remdesivir 200 mg LOADING DOSE X1 IV ONE (12:30)
[2021-04-01] MEDS ORDERED: Remdesivir 100 mg Q24H MAINTENANCE DOSING IV SCH (09:00)
[2021-04-01] MEDS: Polyethylene Glycol 3350 17 GM PACKET PO SCH (09:28)
[2021-04-01 09:35] VITALS: BP 130/80
== END 2021-04-01 17:45 | disposition home or self-care (01) | DRG 720 ==
LOC: ED 11:53 → MED 11:53
PROVIDERS: ADMIT Internal Medicine; ATTEND Internal Medicine

== ENCOUNTER 2021-06-26 10:21 | Inpatient (IN) ==
[2021-06-26] MEDS ORDERED: NS 0.9% 1000 ml BAG 1,000 ML IV ONE (12:31)
[2021-06-26] MEDS: Heparin DRIP 25,000 UNITS BAG 25,000 UNITS/500 ML BAG IV SCH (13:24)
[2021-06-26] MEDS: Heparin 5000 UNITS/ML 1 mL VIAL IV SCH (13:25)
[2021-06-26 13:55] LABS: ABS Eosinophils 0.2 10^3/ul (0-0.6); ABS Lymphocytes 1.6 10^3/ul (1.0-4.8); ABS Monocytes 0.8 10^3/ul (0-0.8); ABS Neutrophils 5.3 10^3/ul (1.5-7.7); Eosinophil % 1.9 %; Hematocrit 41 % (42-52); Hemoglobin 14.2 g/dL (14.0-18.0); Lymphocyte % 20.3 %; Mean Corpuscular HGB Conc 34 g/dL (31-36); Mean Corpuscular Hemoglobin 28 pg (27-31); Mean Corpuscular Volume 82 fL (80-94); Mean Platelet Volume 8.4 fL (7.4-10.4); Platelet Count 179 10^3/uL (150-450); Red Cell Distribution Width 17 % (10-15); White Blood Count 7.9 10^3/uL (3.5-10.8)
[2021-06-26 14:12] LABS: Troponin I 0.01 ng/mL (<0.03)
[2021-06-26 14:15] LABS: Albumin 4.1 g/dL (3.2-5.2); Albumin/Globulin Ratio 1.2 (1-3); Calcium 9.2 mg/dL (8.6-10.3); EGFR African American 104.3 (>60); EGFR Non-African American 86.2 (>60); Globulin 3.4 g/dL (2-4); Potassium 4.1 mmol/L (3.5-5.0); Total Bilirubin 1.2 mg/dL (0.2-1.0); Total Protein 7.5 g/dL (6.4-8.9)
[2021-06-26] MEDS ORDERED: Iohexol 350 (CONTRAST) 500 ML MDV IV ONE (14:20)
[2021-06-26] MEDS ORDERED: Ondansetron 4 mg VIAL 2 MG/ML 2 ml VIAL IV PRN (17:26)
[2021-06-27 04:41] LABS: ABS Basophils 0.1 10^3/ul (0-0.2); ABS Eosinophils 0.3 10^3/ul (0-0.6); ABS Lymphocytes 1.7 10^3/ul (1.0-4.8); ABS Monocytes 1.1 10^3/ul (0-0.8); ABS Neutrophils 4.7 10^3/ul (1.5-7.7); Eosinophil % 3.4 %; Hematocrit 36 % (42-52); Hemoglobin 12.5 g/dL (14.0-18.0); Lymphocyte % 21.9 %; Mean Corpuscular HGB Conc 35 g/dL (31-36); Mean Corpuscular Hemoglobin 28 pg (27-31); Mean Corpuscular Volume 81 fL (80-94); Mean Platelet Volume 8.2 fL (7.4-10.4); Platelet Count 170 10^3/uL (150-450); Red Blood Count 4.48 10^6 /uL (4.18-5.48); Red Cell Distribution Width 16 % (10-15); White Blood Count 7.8 10^3/uL (3.5-10.8)
[2021-06-27] MEDS: Heparin DRIP 25,000 UNITS BAG 25,000 UNITS/500 ML BAG IV SCH (06:07)
[2021-06-27] MEDS ORDERED: ALTEPLASE IV ONE (09:00)
[2021-06-27] MEDS ORDERED: NS 0.9% IV ONE (09:00)
[2021-06-27] MEDS ORDERED: Iohexol 350 (CONTRAST) 200 ML MDV IV ONE ×2 (09:19→11:53)
[2021-06-27] MEDS ORDERED: Heparin 2 UNITS/ML IVPREMIX 3,000 UNIT/1,500 ML BAG IV ONE (09:19)
[2021-06-27] MEDS ORDERED: Lidocaine 1% VIAL 10 MG/ML VIAL ONE (09:19)
[2021-06-27] MEDS ORDERED: fentaNYL 100 mcg/2 ml 50 MCG/ML VIAL ONE ×3 (09:20→11:04)
[2021-06-27] MEDS ORDERED: Midazolam 5 mg/5 ml VIAL 1 mg/ml 5 ml VIAL (5 mg) ONE (09:20)
[2021-06-27] MEDS ORDERED: Heparin 2 UNITS/ML IVPREMIX 1,000 UNIT/500 ML BAG IV ONE (11:16)
[2021-06-27] MEDS: Heparin 5000 UNITS/ML 1 mL VIAL IV SCH (21:48)
[2021-06-28] MEDS: Heparin DRIP 25,000 UNITS BAG 25,000 UNITS/500 ML BAG IV SCH (02:01)
[2021-06-28 04:12] LABS: ABS Eosinophils 0.2 10^3/ul (0-0.6); ABS Lymphocytes 2.1 10^3/ul (1.0-4.8); ABS Monocytes 1.1 10^3/ul (0-0.8); ABS Neutrophils 4.1 10^3/ul (1.5-7.7); Hematocrit 33 % (42-52); Hemoglobin 11.2 g/dL (14.0-18.0); Lymphocyte % 27.6 %; Mean Corpuscular HGB Conc 34 g/dL (31-36); Mean Corpuscular Hemoglobin 28 pg (27-31); Mean Corpuscular Volume 82 fL (80-94); Mean Platelet Volume 7.9 fL (7.4-10.4); Platelet Count 164 10^3/uL (150-450); Red Blood Count 4.06 10^6 /uL (4.18-5.48); Red Cell Distribution Width 16 % (10-15); White Blood Count 7.6 10^3/uL (3.5-10.8)
[2021-06-28 04:29] LABS: Calcium 8.3 mg/dL (8.6-10.3); EGFR African American 104.3 (>60); EGFR Non-African American 86.2 (>60); Magnesium 1.7 mg/dL (1.9-2.7); Potassium 3.7 mmol/L (3.5-5.0)
[2021-06-28] MEDS ORDERED: Heparin 2 UNITS/ML IVPREMIX 3,000 UNIT/1,500 ML BAG IV ONE (07:56)
[2021-06-28] MEDS ORDERED: Iohexol 350 (CONTRAST) 200 ML MDV IV ONE (07:56)
[2021-06-28] MEDS ORDERED: Lidocaine 1% VIAL 10 MG/ML VIAL ONE (07:56)
[2021-06-28] MEDS ORDERED: Midazolam 5 mg/5 ml VIAL 1 mg/ml 5 ml VIAL (5 mg) ONE (08:09)
[2021-06-28] MEDS ORDERED: fentaNYL 100 mcg/2 ml 50 MCG/ML VIAL ONE ×3 (08:09→09:41)
[2021-06-28 15:32] VITALS: BP 128/77
== END 2021-06-28 16:24 | disposition home or self-care (01) | DRG 181 ==
LOC: ED 10:21 → MEDTELE 17:30
PROVIDERS: ADMIT Hospitalist; ATTEND Hospitalist